=== PATIENT | male | born 2000 | race Two or more races ===

== ENCOUNTER 2025-03-01 17:32 | Inpatient (IN) | payer MEDICAID, SELFPAY ==
[2025-03-01] VITALS (12 sets, daily range): BP systolic 119–149; BP diastolic 70–96; PULSE 114–136; RESP 18–30; TEMP 36.4–36.9; O2SAT 98–100; BMI 28.1
--- NOTE | 2025-03-01 18:53 | PD.EDNV ---
Nausea/Vomit./Diarrhea-RME/HPI General Chief complaint: General Adult/Misc Complain Stated complaint: DEHYDRATED, FEELS SICK, N/V, HEADACHE Time Seen by Provider: 03/01/25 18:40 Arrival date/time: 03/01/25 17:32 24M with history of alcohol/cocaine use (3 weeks ago) presents to [facility] with several days of N/V and feelings of dehydration. Symptoms started after patient ate some seafood. No diarrhea or ab pain. Limitations: no limitations Related Data Previous Rx's ?Medication ?Instructions ?Recorded ketoconazole 2 % shampoo 1 applic topical Q14D #120 mL 04/14/20 loratadine 10 mg tablet (Claritin) 10 mg PO QDAY #30 tabs 04/14/20 triamcinolone acetonide 0.025 % 1 applic topical QDAY #80 grams 04/14/20 topical ointment Allergies Allergy/AdvReac Type Severity Reaction Status Date / Time No Known Allergies Allergy Verified 03/01/25 17:35 Review of Systems Review of Systems Systems Reviewed: All systems reviewed, normal except as documented Gastrointestinal Gastrointestinal: Reports as per HPI, Reports nausea and Reports vomiting Past Medical History Past Medical History CARDIAC: Negative Congestive Heart Failure RESPIRATORY: Negative Chronic Obstructive Pulmonary Disease (COPD) GENITOURINARY: Negative Renal Disease ENDOCRINE: Negative Diabetes Mellitus Type 1 or Diabetes Mellitus Type 2 Social History SMOKING STATUS: Never smoker ED Exam General Limitations: Present no limitations General appearance: Present alert, in no apparent distress and anxious (mild) Head Head exam: Present atraumatic Neck Neck exam: Present normal inspection, full ROM and trachea midline Chest Chest inspection: Present normal inspection and symmetric chest wall rise Abdominal Exam Abdominal exam: Present soft; Absent tenderness Neurological Exam Neurological exam: Present alert and oriented X3 Psychiatric Psychiatric exam: Present normal affect and normal mood Skin Skin exam: Present warm, dry, intact and normal color Course Quality Measures none Orders Category Date Time Status Admit to Inpatient Status Routine Admission 03/01/25 21:05 Active Patient Condition Routine Admission 03/01/25 21:05 Ordered Blood glucose [Bedside Blood Glucose] NOW Care 03/01/25 19:49 Active COVID-19 Screening Questionnaire NOW Care 03/01/25 20:58 Active Fire Manager STAT Care 03/01/25 20:35 Active DKA Protocol QSHIFT Care 03/01/25 20:35 Active Decision to Admit X1 Care 03/01/25 20:58 Active Flu & Pneumonia Vaccine Screen ONCE Care 03/01/25 21:05 Active Insert IV NOW Care 03/01/25 19:51 Active Intake and Output Routine Care 03/01/25 20:35 Ordered May take PO meds w/sips of H2O NEEDED Care 03/01/25 21:05 Active NPO NOW Care 03/01/25 21:02 Active Notify provider NEEDED Care 03/01/25 21:02 Active Notify provider NEEDED Care 03/01/25 21:05 Active SCD [Sequential Compression Device] QSHIFT Care 03/01/25 21:05 Active Referral Registered Dietitian Routine Cons 03/01/25 20:35 Active Diet NPO (NOW) Diet 03/01/25 21:02 Active CXRP [XR chest 1V portable] Stat Exams 03/01/25 21:11 Ordered A1C [Glycohemoglobin w (eAG)] Stat Lab 03/01/25 19:37 Completed Alcohol, Blood Medical Stat Lab 03/01/25 19:37 Completed Beta Hydroxybutyrate Stat Lab 03/01/25 19:37 Completed Blood Culture (Lab) Routine Lab 03/01/25 21:02 Ordered CBC AM DRAW Lab 03/02/25 05:00 Ordered CBC AM DRAW Lab 03/03/25 05:00 Ordered CBC AM DRAW Lab 03/04/25 05:00 Ordered CBC Stat Lab 03/01/25 19:37 Completed CMP [Comprehensive Metabolic Panel] Stat Lab 03/01/25 19:37 Completed Drug Screen,Urine Stat Lab 03/01/25 19:00 Completed Lactate (Lactic Acid) Q4H Lab 03/02/25 01:15 Ordered Lactate (Lactic Acid) Q4H Lab 03/02/25 05:15 Ordered Lactate (Lactic Acid) Q4H Lab 03/02/25 09:15 Ordered Lactate (Lactic Acid) Q4H Lab 03/02/25 13:15 Ordered Lactate (Lactic Acid) Q4H Lab 03/02/25 17:15 Ordered Lactate (Lactic Acid) Q4H Lab 03/02/25 21:15 Ordered Lactate (Lactic Acid) Q4H Lab 03/03/25 01:15 Ordered Lactate (Lactic Acid) Q4H Lab 03/03/25 05:15 Ordered Lactate (Lactic Acid) Q4H Lab 03/03/25 09:15 Ordered Lactate (Lactic Acid) Q4H Lab 03/03/25 13:15 Ordered Lactate (Lactic Acid) Q4H Lab 03/03/25 17:15 Ordered Lactate (Lactic Acid) Q4H Lab 03/03/25 21:15 Ordered Lactate (Lactic Acid) Stat Lab 03/01/25 19:37 Results Lipase Stat Lab 03/01/25 19:37 Completed Magnesium Q4H Lab 03/02/25 01:15 Ordered Magnesium Q4H Lab 03/02/25 05:15 Ordered Magnesium Q4H Lab 03/02/25 09:15 Ordered Magnesium Q4H Lab 03/02/25 13:15 Ordered Magnesium Q4H Lab 03/02/25 17:15 Ordered Magnesium Q4H Lab 03/02/25 21:15 Ordered Magnesium Q4H Lab 03/03/25 01:15 Ordered Magnesium Q4H Lab 03/03/25 05:15 Ordered Magnesium Q4H Lab 03/03/25 09:15 Ordered Magnesium Q4H Lab 03/03/25 13:15 Ordered Magnesium Q4H Lab 03/03/25 17:15 Ordered Magnesium Q4H Lab 03/03/25 21:15 Ordered Magnesium Stat Lab 03/01/25 19:37 Completed Phosphorous Stat Lab 03/01/25 19:37 Completed Procalcitonin Stat Lab 03/01/25 19:37 Completed Renal Function Panel Q4 Lab 03/02/25 01:15 Ordered Renal Function Panel Q4 Lab 03/02/25 05:15 Ordered Renal Function Panel Q4 Lab 03/02/25 09:15 Ordered Renal Function Panel Q4 Lab 03/02/25 13:15 Ordered Renal Function Panel Q4 Lab 03/02/25 17:15 Ordered Renal Function Panel Q4 Lab 03/02/25 21:15 Ordered Renal Function Panel Q4 Lab 03/03/25 01:15 Ordered Renal Function Panel Q4 Lab 03/03/25 05:15 Ordered Renal Function Panel Q4 Lab 03/03/25 09:15 Ordered Thyroid Stimulating Hormone AM DRAW Lab 03/02/25 05:00 Ordered Urinalysis, C/S if Indicated Stat Lab 03/01/25 19:00 Completed VBG [Venous Blood Gas] Stat Lab 03/01/25 19:37 Completed Dextrose 5%-Lactated Ringers [D5-Lr] 1,000 ml Med 03/01/25 20:34 Active Pot Chl Additive [KCl Additive] 40 meq IV 250 mls/hr Dextrose 5%-Lactated Ringers [D5-Lr] 1,000 ml Med 03/01/25 20:34 Active IV 250 mls/hr Dextrose 5%-Lactated Ringers [D5-Lr] 1,000 ml Med 03/01/25 21:02 Ordered IV 250 mls/hr Dextrose 50% Syr [D50w Syringe Abboject] Med 03/01/25 20:34 Discontinued 25 ml IV PRNMRX1 PRN Dextrose 50% Syr [D50w Syringe Abboject] Med 03/01/25 21:02 Ordered 25 ml IV PRNMRX1 PRN KCL 20 mEq/L in D5-LR Med 03/01/25 20:34 Active 20 meq in 1,000 ml IV 250 mls/hr Magnesium Sulfate 2 GM Ivpb [Magnesium Sulfate Ivpb] Med 03/01/25 20:34 Discontinued 2 gm in 50 ml IV 25 mls/hr Magnesium Sulfate 2 GM Ivpb [Magnesium Sulfate Ivpb] Med 03/01/25 21:10 Ordered 2 gm in 50 ml IV 25 mls/hr Ondansetron Odt [Zofran Odt] Med 03/01/25 18:43 Discontinued 4 mg PO X1 ONE POT PHOS 15 mMol in NS 250 ML [Pot Phos 15 mMol in NS Med 03/01/25 20:34 Active 250 ml] 15 mmol in 250 ml IV PRN POTASSIUM CHL 10 mEq IVPB [Kcl Ivpb] Med 03/01/25 20:34 Active 10 meq in 100 ml IV 100 mls/hr POTASSIUM CHL 10 mEq IVPB [Kcl Ivpb] Med 03/01/25 20:34 Active 10 meq in 100 ml IV PRN Pre-Mixed [Pre-mixed Bag] 1 bag Med 03/01/25 20:34 Active Insulin Reg 100 Units/100 ml [Myxredlin] 100 unit IV 0.1 unit/kg/hr Ringers Lactated 1000 ml [Lactated Ringers] 1,000 ml Med 03/01/25 20:34 Active Pot Chl Additive [KCl Additive] 20 meq IV 250 mls/hr Ringers Lactated 1000 ml [Lactated Ringers] 1,000 ml Med 03/01/25 20:34 Active Pot Chl Additive [KCl Additive] 40 meq IV 250 mls/hr Ringers Lactated 1000 ml [Lactated Ringers] 1,000 ml Med 03/01/25 20:34 Active IV 250 mls/hr Ringers Lactated 1000 ml [Lactated Ringers] 1,000 ml Med 03/01/25 21:02 Ordered IV 250 mls/hr Ringers Lactated 1000 ml [Lactated Ringers] 1,000 ml Med 03/01/25 19:51 Discontinued IV 999 mls/hr Ringers Lactated 1000 ml [Lactated Ringers] 1,000 ml Med 03/01/25 20:14 Active IV 999 mls/hr Sevelamer Carbonate [Renvela] Med 03/01/25 21:09 Once 800 mg PO X1 ONE Sodium Bicarb 8.4% SYR Med 03/01/25 20:34 Active 50 ml IV Q4HR PRN Sodium Chloride 0.9% 250 ml [Ns] 250 ml Med 03/01/25 20:34 Active Sod Phos Additive [NaPhos Additive] 15 mmol IV 62.5 mls/hr Code Status Routine Oth 03/01/25 21:05 Ordered EKG (RT) Stat RT 03/01/25 21:02 Ordered Vital Signs Vital signs: Vital Signs Temperature 97.5 F 03/01/25 18:36 Pulse Rate 114 H 03/01/25 18:36 Respiratory Rate 18 03/01/25 18:36 Blood Pressure 136/91 H 03/01/25 18:36 Pulse Oximetry (%) 98 03/01/25 18:36 Oxygen Delivery Method Room Air 03/01/25 18:36 O2 at 98% on RA and WNLs Nausea/Vomiting/Diarrhea MDM Narrative MDM Narrative:: 24M with history of alcohol/cocaine use (3 weeks ago) presents to [facility] with several days of N/V and feelings of dehydration. Symptoms started after patient ate some seafood. No diarrhea or ab pain. Physical exam reveals no ab tenderness. Gait normal. Speech normal. Patient is afebrile, alert, but mildly anxious. Moderate leukocytosis. CMP remarkable for mildly elevated K, low bicarb, elevated Cr and anion-gap. Beta >6.4. Blood pH 7.09. Drug/alcohol screen neg. UA high glucose and ketones. Spoke to Dr. Elliott, ICU resident, who will admit patient. Patient data External records reviewed:: [facility] previous records Clinical information provided by:: patient Social determinants that could affect healthcare access:: substance use Patient has the following chronic illnesses:: alcohol/drug How is presenting disease/condition affected by chronic disease/condition?: exacerbated by Evaluation data The following diagnostics were reviewed and interpreted by me:: lab results Lab and/or radiology exams considered but not ordered:: ordered Interpretation Summary: above Medications / Prescriptions Medications / Prescriptions considered but not ordered:: ordered Medication administrations:: Medication Administration History Dextrose (Dextrose 50%-Water Inj 50 Ml Syringe) 25 ml IV PRNMRX1 PRN PRN Reason: Blood Sugar - Low Lactated Ringer's (Lactated Ringers) 1,000 mls @ 999 mls/hr IV .Q1H1M ONE Stop: 03/01/25 21:14 Potassium Chloride (Kcl Ivpb) 10 meq in 100 mls @ 100 mls/hr IV .Q1H PRN PRN Reason: IF POTASSIUM LESS THAN 3.3 Stop: 03/31/25 20:33 Insulin Human Regular 100 unit (/ IV Miscellaneous Supplies) 100 mls @ 7.439 mls/hr IV .[id number] PRN; Protocol PRN Reason: PER PROTOCOL Stop: 03/31/25 20:33 Dextrose/Lactated Ringer's (D5-Lr) 1,000 mls @ 250 mls/hr IV .Q4H PRN PRN Reason: PER PROTOCOL Stop: 03/31/25 20:33 Lactated Ringer's (Lactated Ringers) 1,000 mls @ 250 mls/hr IV .Q4H PRN PRN Reason: PER PROTOCOL Stop: 03/02/25 20:33 Potassium Chloride 20 meq/ (Lactated Ringer's) 1,010 mls @ 250 mls/hr IV .Q4H3M PRN PRN Reason: K LEVEL 3.3 TO 5.3mM/L Stop: 03/31/25 20:33 Potassium Chloride 40 meq/ (Lactated Ringer's) 1,020 mls @ 250 mls/hr IV .Q4H5M PRN PRN Reason: K LEVEL < 3.3 mM/L Stop: 03/31/25 20:33 Potassium Chloride 40 meq/ (Dextrose/Lactated Ringer's) 1,020 mls @ 250 mls/hr IV .Q4H5M PRN PRN Reason: K LEVEL < 3.3mM/L Stop: 03/31/25 20:33 Potassium Cl/Dextrose/Lact Ringer's (Kcl 20 Meq/L In D5-Lr) 20 meq in 1,000 mls @ 250 mls/hr IV .Q4H PRN PRN Reason: K LEVEL 3.3 TO 5.3 mM/L Potassium Chloride (Kcl Ivpb) 10 meq in 100 mls @ 50 mls/hr IV PRN PRN PRN Reason: K LEVEL 3.3 to 5.3 & BG > 200 Stop: 03/31/25 20:33 Potassium Phosphate (Pot Phos 15 Mmol In Ns 250 Ml) 15 mmol in 250 mls @ 62.5 mls/hr IV PRN PRN PRN Reason: Phosphate <= 1mg/dL Stop: 03/31/25 20:33 Sodium Phosphate 15 mmol/ (Sodium Chloride) 255 mls @ 62.5 mls/hr IV .Q4H5M PRN PRN Reason: Phosphate <= 1mg/dL and K> than 5.3 Stop: 03/31/25 20:33 Dextrose/Lactated Ringer's (D5-Lr) 1,000 mls @ 250 mls/hr IV .Q4H PRN PRN Reason: PER PROTOCOL Stop: 03/31/25 21:01 Lactated Ringer's (Lactated Ringers) 1,000 mls @ 250 mls/hr IV .Q4H PRN PRN Reason: PER PROTOCOL Stop: 03/02/25 21:01 Magnesium Sulfate (Magnesium Sulfate Ivpb) 2 gm in 50 mls @ 25 mls/hr IV .Q2H PRN PRN Reason: PER DKA PROTOCOL Stop: 03/31/25 20:33 Sevelamer Carbonate (Sevelamer Carbonate 800 Mg Tablet) 800 mg PO X1 ONE Stop: 03/01/25 21:10 Sodium Bicarbonate (Sodium Bicarb Inj 8.4% Syr 50 Ml Syringe) 50 ml IV Q4HR PRN PRN Reason: For ph <= to 7.0 Stop: 03/31/25 20:33 Discontinued Medications Dextrose (Dextrose 50%-Water Inj 50 Ml Syringe) 25 ml IV PRNMRX1 PRN PRN Reason: Blood Sugar - Low Lactated Ringer's (Lactated Ringers) 1,000 mls @ 999 mls/hr IV .Q1H1M ONE Stop: 03/01/25 20:51 Magnesium Sulfate (Magnesium Sulfate Ivpb) 2 gm in 50 mls @ 25 mls/hr IV .Q2H PRN PRN Reason: PER DKA PROTOCOL Stop: 03/31/25 20:33 Ondansetron HCl (Ondansetron Odt 4 Mg Tabrap) 4 mg PO X1 ONE; Protocol Stop: 03/01/25 18:44 Last Admin: 03/01/25 19:43 Dose: 4 mg Documented By: CASSIUS above Consultations Consultation(s) initiated? (list below): Yes Diagnosis Nausea Differential Diagnosis: traveler's diarrhea, food poisoning, gastroenteritis, clostridium difficile infection, drug-induced nausea and vomiting, dehydration and other (DKA) Most likely diagnosis given after review of the tests above:: DKA Admission Indicated Admission indicated?: indicated Admission Request Was there a request for admission?: Yes Admission Attestation Admission request attestation: Discussed case with [] from Hospitalist service regarding admission. Discussed patients ED course, exam findings, labs, and radiology results. The Hospitalist [agrees,declines] to accept the patient for admission. Disposition Plan Disposition Plan: Admit Discharge Plan Plan Patient Disposition: Admit Acute Care w/in Hospital Prescriptions/Referrals Prescriptions/Med Rec: No Action loratadine [Claritin] 10 mg tablet 10 mg PO QDAY Qty: 30 0RF triamcinolone acetonide 0.025 % ointment 1 applic topical QDAY Qty: 80 0RF ketoconazole 2 % shampoo 1 applic topical Q14D Qty: 120 0RF Referrals: No Primary/Family,Physician [Primary Care Provider] - In 1 week Problem List Clinical Impression: DKA (diabetic ketoacidosis) Patient/Caregiver Discharge Instructions Print Language: Greek Stand Alone Forms: [employer] Award Info., Patient Portal Info Letter
[2025-03-01 19:18] LABS: Collection Type, Urine Clean Catch; Squamous Epithelial Cell,Urine 0 /hpf (0-5)
[2025-03-01 19:33] LABS: Bilirubin,Urine Negative (Negative); Blood,Urine 1+ (Negative); Clarity,Urine Clear (Clear/Hazy); Color,Urine Lt-Yellow (Lt Yel-Yel); Culture Indicated,Urine Not Indicated; Glucose, Urine 4+ (Negative); Ketones,Urine 4+ (Negative); Leukocyte Esterase,Urine Negative (Negative); Nitrite,Urine Negative (Negative); PH,Urine 6.0 (5.0-7.0); Protein,Urine 1+ (Neg - Trace); RBC,Urine 3 /hpf (0-3); Specific Gravity,Urine 1.033 (1.001-1.035); Urobilinogen,Urine Negative mg/dL (0.0-1.0); WBC,Urine < 1 /hpf (0-5)
[2025-03-01] MEDS: ONDANSETRON ODT 4 MG TABRAP PO (19:43)
[2025-03-01 19:50] LABS: Lactate (Lactic Acid) 3.3 mMol/L (0.4-2.0)
[2025-03-01 19:56] LABS: Basophils # (Auto) 0.1 Thou/mm3 (0.0-0.2); Basophils % (Auto) 1 % (0-2.5); Eosinophils # (Auto) 0.0 Thou/mm3 (0.0-0.5); Eosinophils % (Auto) 0 % (0-10); Hematocrit 49.2 % (41.0-53.0); Hemoglobin 17.0 g/dL (13.5-16.0); Immature Granulocytes Auto 0.18 Thou/mm3 (0.00-0.00); Lymphocytes # (Auto) 1.5 Thou/mm3 (1.0-4.8); Lymphocytes % (Auto) 10 % (10-50); Mean Corpuscular HGB Conc 34.6 g/dl (31.0-37.0); Mean Corpuscular Hemoglobin 29.8 pg (25.0-35.0); Mean Corpuscular Volume 86 fL (80-100); Monocytes # (Auto) 0.8 Thou/mm3 (0.0-0.8); Monocytes % (Auto) 5 % (0-12); Neutrophils # (Auto) 12.2 Thou/mm3 (1.8-7.7); Neutrophils % (Auto) 83 % (37-80); Nucleated Red Blood Cell # 0.00 Thou/mm3 (0.00-0.00); Nucleated Red Blood Cell % 0 /100 WBC (0); Platelet Count 448 Thou/mm3 (140-440); RDW Standard Deviation 37.6 fL (35.1-43.9); Red Blood Count 5.70 Miln/mm3 (4.50-5.90); White Blood Count 14.7 Thou/mm3 (3.8-10.6)
[2025-03-01 19:58] LABS: Amphetamine/Methamp Scrn,U Negative (Negative); Barbiturate Screen,Urine Negative (Negative); Benzodiazepines Screen,Urine Negative (Negative); Benzoylecgonine Screen, Ur Negative (Negative); Fentanyl Screen,Urine Negative (Negative); Opiate Screen,Urine Negative (Negative); THC Screen,Urine Negative (Negative)
[2025-03-01 20:04] LABS: Base Excess, Venous -20 (-3-3); O2 Saturation, Venous 68 % (96-97); PCO2, Venous 30 mmHg (36-56); PO2, Venous 39 mmHg (15-58); pH, Venous 7.09 (7.33-7.66)
[2025-03-01 20:17] LABS: Beta Hydroxybutyrate > 6.4 mmol/L (<0.6)
[2025-03-01 20:22] LABS: Glucose Estimated Average 306 mg/dL (80-131); Hemoglobin A1C 12.3 % Hgb (4.8-6.0)
[2025-03-01 20:27] LABS: Alanine Aminotransferase 157 U/L (10-49); Albumin, Serum > 6.0 gm/dL (3.5-5.0); Albumin/Globulin Ratio 1.9 (1.2-2.2); Alcohol, Blood Medical < 3.0 mg/dL (0-10.0); Alkaline Phosphatase 185 U/L (46-116); Anion Gap 30 (7-16); Aspartate Amino Transferase 66 U/L (0-34); BUN/Creatinine Ratio 7 Ratio (12-20); Bilirubin,Total 0.8 mg/dL (0.3-1.2); Blood Urea Nitrogen 15 mg/dL (9-23); Calcium 10.5 mg/dL (8.3-10.6); Calcium (Corrected) 10.5 mg/dL (8.5-10.1); Chloride 99 mMol/L (98-107); Creatinine (Component) 2.3 mg/dL (0.6-1.3); Estimated Creatinine Clearance 45.7 mL/min (>60); Globulin 3.2 gm/dL (2.3-3.5); Lipase 38 U/L (12-53); Magnesium 2.7 mg/dL (1.6-2.6); Osmolality,Calculated 310 (275-295); Phosphorous 8.0 mg/dL (2.4-5.1); Potassium 5.4 mMol/L (3.4-5.1); Procalcitonin 0.13 ng/ml (0.0-0.49); Sodium 139 mMol/L (136-145); Total Protein 9.2 gm/dL (5.7-8.2); eGFR 40 See Note
[2025-03-01 20:28] LABS: Carbon Dioxide < 10.0 mMol/L (20.0-31.0)
[2025-03-01 20:29] LABS: Glucose 683 mg/dL (74-106)
--- NOTE | 2025-03-01 21:02 | EKG_ITS ---
[facility] Test Date: 2025-03-01 Pat Name: EDWINA HUI Department: Room: - Gender: Male Correctional Case Manager: : [id number] Requested By: Nash Elliott Order Number: [id number] Reading MD: Nash Elliott Measurements Intervals [place] Rate: 123 P: 51 ND: 125 QRS: 16 QRSD: 89 T: 51 QT: 307 QTc: 440 Interpretive Statements SINUS TACHYCARDIA ABNORMAL RHYTHM ECG No previous ECG available for comparison /[email or web address]/[email or web address]/[id number]/[id number].pdf
--- NOTE | 2025-03-01 21:11 | XR_ITS ---
EXAMINATION: AP chest single view TECHNIQUE: AP portable upright chest single view Date and time: March 01, 2025, 2138 hours INDICATIONS: Difficulty breathing this week FINDINGS: Normal heart size No pneumonia or pulmonary edema. The osseous structures are intact IMPRESSION: No active disease
--- NOTE | 2025-03-01 21:53 | PD.RESHP ---
Documentation for date of: 03/01/25 HPI History of Present Illness History of present illness: Chief complaint: Intractable nausea vomiting x 3 days HPI: Mr. Oates Is a pleasant 24-year-old male with no significant past medical history who was brought to the ED by his mother for persistent nausea vomiting over the last 3 days. Patient started experiencing severe nausea 72 hours ago, with intermittent episodes of nonbilious nonbloody vomitus x 10+ episodes over the last 3 days. His last meal was 72 hours ago and last bowel movement was yesterday. He has never experienced the symptoms in the past. He denies any fevers, systemic symptoms or any signs of infection. He denies any sick contacts or recent travel as well. He does complain of bodyaches, which have worsened over the last 24 hours. There is also some associated dizziness, however denies any episodes of syncope. In the ED, vitals showed elevated blood pressure 149/96, tachypnea RR 24?26 and tachycardia HR 133-138 bpm. Temperature within normal limits. Initial laboratory workup remarkable for leukocytosis WBC 14.7 with neutrophil predominance, hemoconcentration Hb 17, platelet 448, albumin > 6 and protein 9.2. CHEM panel showed hyperkalemia 5.4, hypermagnesemia 2.7, hyperphosphatemia 8 and hypercalcemia 10.5. Blood glucose level 683, BHB > 6.4, VBG pH 7.09 and CO2 30. AG 30 and Lactic acid noted to be 3.3 and A1c 12.3%. Patient also had mild transaminitis AST 66 ALT 157 and ALP 185. Patient admitted to ICU for management of acute diabetic ketoacidosis, in the setting of new onset type 2 diabetes mellitus. Allergies: NKFDA Social history: Occupational?History: Marital?Status:?Single Tobacco?Use:?Denies ETOH?Use:?History of alcohol use disorder, quit 1 month ago. Previously consumed 4?5 beers daily x 5 years Drug?Note:?History of cocaine use, last use 1 month ago with alcohol. Says he has quit Social?History?Note:?Lives?at home with family Family history: Patient is not in touch with his father or paternal side of the family. Mother? type 2 diabetes mellitus x 22 years, was diagnosed in her mid 20s Review of Systems Review of Systems Narrative Review of Systems: GENERAL: Denies fevers/chills, diaphoresis. Generalized body aches HEENT: Denies headache or visual/hearing changes. Denies nasal discharge. NEURO: Denies unusual weakness or difficulty speaking. CARDIO: Denies chest pain, palpitations. PULM: Denies SOB, cough, wheezing. GI: Mild right sided abdominal pain, N/V, no C/D. Reports having BMs URO: Denies burning/itching/pain/urinary changes. MSK/EXT/SKIN: Denies skeletal/muscle pain, changes in upper or lower extremities, itchiness, superficial skin changes. PSYCH: Cooperative, pleasant mood & affect. Anxious The rest of the review of systems is otherwise negative. Exam Vital Signs Temp Pulse Resp BP Pulse Ox O2 Del Method 98.4 F 133 H 24 H 149/96 H 98 Room Air 03/01/25 21:46 03/01/25 21:46 03/01/25 21:46 03/01/25 21:46 03/01/25 21:46 03/01/25 21:46 Narrative Exam Constitutional Alert, oriented x3, overweight BMI 28, visibly anxious HEENT Vision grossly intact, PERRL. Patent nares. Trachea midline. Respiratory Chest normal on inspection and clear to auscultation bilaterally. Cardiovascular S1 and S2 audible, RRR, tachycardia HR 130s bpm. No murmurs or carotid bruit. No gross JVD. Abdominal Soft and BS + ; non tender to palpation in all quadrants. Genitourinary No bladder tenderness, no flank pain. Normal to palpation. Musculoskeletal Extremities tone within normal limits. No LE edema. Neurological CN II - XII grossly intact. Extremity motor and sensation grossly intact. Skin Warm, dry and intact. No apparent lesions. Results: Labs 03/01/25 19:37 03/01/25 19:37 Labs: Short CBC 03/01/25 Range/Units 19:37 WBC 14.7 H (3.8-10.6) Thou/mm3 Hgb 17.0 H (13.5-16.0) g/dL Hct 49.2 (41.0-53.0) % Plt Count 448 H (140-440) Thou/mm3 BMP 03/01/25 19:37 Sodium 139 Potassium 5.4 H Chloride 99 Carbon Dioxide < 10.0 L* BUN 15 Creatinine 2.3 H Glucose 683 H* Calcium 10.5 Liver Function 03/01/25 Range/Units 19:37 Total Bilirubin 0.8 (0.3-1.2) mg/dL AST 66 H (0-34) U/L ALT 157 H (10-49) U/L Alkaline Phosphatase 185 H (46-116) U/L Albumin > 6.0 H (3.5-5.0) gm/dL Urine 03/01/25 Range/Units 19:00 Urine Color Lt-Yellow (Lt Yel-Yel) Urine Clarity Clear (Clear/Hazy) Urine pH 6.0 (5.0-7.0) Ur Specific [place] 1.033 (1.001-1.035) Urine Protein 1+ A (Neg - Trace) Urine Glucose (UA) 4+ A (Negative) ABG Interpretation ABG results: 03/01/25 19:37 VBG pH 7.09 L VBG pCO2 30 L VBG pO2 39 VBG Base Excess -20 L Quality Measures Quality Measures none Medications Home Medications and Allergies Allergies Allergy/AdvReac Type Severity Reaction Status Date / Time No Known Allergies Allergy Verified 03/01/25 17:35 Visit Medications Dextrose (Dextrose 50%-Water Inj 50 Ml Syringe) 25 ml IV PRNMRX1 PRN PRN Reason: Blood Sugar - Low Potassium Chloride (Kcl Ivpb) 10 meq in 100 mls @ 100 mls/hr IV .Q1H PRN PRN Reason: IF POTASSIUM LESS THAN 3.3 Stop: 03/31/25 20:33 Insulin Human Regular 100 unit (/ IV Miscellaneous Supplies) 100 mls @ 7.439 mls/hr IV .[id number] PRN; Protocol PRN Reason: PER PROTOCOL Stop: 03/31/25 20:33 Dextrose/Lactated Ringer's (D5-Lr) 1,000 mls @ 250 mls/hr IV .Q4H PRN PRN Reason: PER PROTOCOL Stop: 03/31/25 20:33 Lactated Ringer's (Lactated Ringers) 1,000 mls @ 250 mls/hr IV .Q4H PRN PRN Reason: PER PROTOCOL Stop: 03/02/25 20:33 Potassium Chloride 20 meq/ (Lactated Ringer's) 1,010 mls @ 250 mls/hr IV .Q4H3M PRN PRN Reason: K LEVEL 3.3 TO 5.3mM/L Stop: 03/31/25 20:33 Potassium Chloride 40 meq/ (Lactated Ringer's) 1,020 mls @ 250 mls/hr IV .Q4H5M PRN PRN Reason: K LEVEL < 3.3 mM/L Stop: 03/31/25 20:33 Potassium Chloride 40 meq/ (Dextrose/Lactated Ringer's) 1,020 mls @ 250 mls/hr IV .Q4H5M PRN PRN Reason: K LEVEL < 3.3mM/L Stop: 03/31/25 20:33 Potassium Cl/Dextrose/Lact Ringer's (Kcl 20 Meq/L In D5-Lr) 20 meq in 1,000 mls @ 250 mls/hr IV .Q4H PRN PRN Reason: K LEVEL 3.3 TO 5.3 mM/L Potassium Chloride (Kcl Ivpb) 10 meq in 100 mls @ 50 mls/hr IV PRN PRN PRN Reason: K LEVEL 3.3 to 5.3 & BG > 200 Stop: 03/31/25 20:33 Potassium Phosphate (Pot Phos 15 Mmol In Ns 250 Ml) 15 mmol in 250 mls @ 62.5 mls/hr IV PRN PRN PRN Reason: Phosphate <= 1mg/dL Stop: 03/31/25 20:33 Sodium Phosphate 15 mmol/ (Sodium Chloride) 255 mls @ 62.5 mls/hr IV .Q4H5M PRN PRN Reason: Phosphate <= 1mg/dL and K> than 5.3 Stop: 03/31/25 20:33 Dextrose/Lactated Ringer's (D5-Lr) 1,000 mls @ 250 mls/hr IV .Q4H PRN PRN Reason: PER PROTOCOL Stop: 03/31/25 21:01 Magnesium Sulfate (Magnesium Sulfate Ivpb) 2 gm in 50 mls @ 25 mls/hr IV .Q2H PRN PRN Reason: PER DKA PROTOCOL Stop: 03/31/25 20:33 Sodium Bicarbonate (Sodium Bicarb Inj 8.4% Syr 50 Ml Syringe) 50 ml IV Q4HR PRN PRN Reason: For ph <= to 7.0 Stop: 03/31/25 20:33 Discontinued Medications Dextrose (Dextrose 50%-Water Inj 50 Ml Syringe) 25 ml IV PRNMRX1 PRN PRN Reason: Blood Sugar - Low Lactated Ringer's (Lactated Ringers) 1,000 mls @ 999 mls/hr IV .Q1H1M ONE Stop: 03/01/25 20:51 Lactated Ringer's (Lactated Ringers) 1,000 mls @ 999 mls/hr IV .Q1H1M ONE Stop: 03/01/25 21:14 Magnesium Sulfate (Magnesium Sulfate Ivpb) 2 gm in 50 mls @ 25 mls/hr IV .Q2H PRN PRN Reason: PER DKA PROTOCOL Stop: 03/31/25 20:33 Lactated Ringer's (Lactated Ringers) 1,000 mls @ 250 mls/hr IV .Q4H PRN PRN Reason: PER PROTOCOL Stop: 03/02/25 21:01 Ondansetron HCl (Ondansetron Odt 4 Mg Tabrap) 4 mg PO X1 ONE; Protocol Stop: 03/01/25 18:44 Last Admin: 03/01/25 19:43 Dose: 4 mg Sevelamer Carbonate (Sevelamer Carbonate 800 Mg Tablet) 800 mg PO X1 ONE Stop: 03/01/25 21:10 Assessment & Plan Plan Patient is a 24-year-old male admitted for acute DKA in the setting of new onset type 2 diabetes mellitus NEURO No active problems ENDO Acute DKA New onset T2 DM Dx: - Blood glucose level 683 - BHB > 6.4 - VBG pH 7.09 and CO2 30. - AG 30 - Hb A1c 12.3% Rx: - Started on insulin drip per DKA protocol - On maintenance IVF LR/D5 LR per protocol - Q4 hour renal panel and lactic acid checks - Will replete electrolytes as needed - Hypoglycemia protocol in place - Day team to transition to subcutaneous insulin and diet when tolerated - Referral to dietitian for diabetic counseling - Advisable to prescribe continuous glucose monitor on discharge CVS Sinus tachycardia History of substance use- cocaine Dx: - HR trending 130-135 bpm - K 6.7 at the time of admission - Per patient, last use of cocaine 1 month ago. Endorses he has quit completely. Rx: - Likely in the setting of DKA, anticipate improvement with fluids and insulin drip - Will give melatonin x 1 for sleep as requested. Patient complains of anxiety in the hospital - EKG ordered, will monitor closely in the setting of hyperkalemia - Follow-up TSH and lipid panel on AM draw PULM No active problems GI/Hep Intractable nausea/vomiting?resolved Dx: - severe nausea 72 hours ago, with intermittent episodes of nonbilious nonbloody vomitus x 10+ episodes over the last 3 days. - last meal was 72 hours ago and last bowel movement was yesterday. - He has never experienced the symptoms in the past. He denies any fevers, systemic symptoms or any signs of infection Rx: - Will keep patient n.p.o. while on DKA treatment. Unable to tolerate oral intake at this time - Continue IV fluids for hydration - As needed Zofran 4 mg every 6 hours for N/V - Day team to start diet once glucose levels <250, and transition to SC insulin - May take sips of water and ice chips if needed RENAL LIAM AGMA 2/2 DKA versus LA Hyperkalemia Hypomagnesemia Hypercalcemia Hyperphosphatemia Dx: - RFT: Creatinine 2.3, BUN 15 and GFR 40 (unknown baseline) - hyperkalemia 5.4 - hypermagnesemia 2.7 - hyperphosphatemia 8 - hypercalcemia 10.5. - AG 30 at the time of admission - BHB >6 and Bicarb <10, glucose 683 - Lactic acid 3.3 Rx: - Continue IV fluids as per DKA protocol, anticipate improvement in LIAM and electrolytes - Anticipate potassium correction with insulin drip - Q4 hours renal panel checks - Ordered sevelamer 800 mg x 1 ID No active problems HEME/ONC Hemoconcentration Dx: - Hb 17, platelet 448 - Albumin > 6 and Protein 9.2 Rx: - Likely in the setting of DKA, and undiagnosed type 2 diabetes mellitus - Anticipate improvement with IV hydration on DKA protocol - Daily CBC and CHEM panel ordered, follow closely ICU Health maintenance: Dispo: Admit to ICU for DKA Diet: N.p.o. with meds allowed DVT ppx: SCDs only. Ambulate patient by day 3 GI ppx: Not indicated Code status: FULL CODE Plan of care discussed with wind turbine electrical engineer Dr Baugh, Nash Elliott MD PGY 2 This document was compiled using speech recognition software. Grammatical errors can be an occasional consequence of this system due to software limitations. Attending Provider Attestation/Addendum 24-year-old male patient was admitted for DKA. He has history of alcohol and cocaine use. The patient does not know that he has diabetes. His mother has diabetes. Earlier he had several episodes of nausea and vomiting. He started feeling very weak today. In the emergency room, his blood pH is 7.02. BHB is greater than 4. He has high anion gap. CO2 is less than 10. Creatinine 2.5. He has abnormal LFTs. He is awake and alert alert. Patient will be on insulin drip. He will be admitted to the ICU.I discussed with and supervised the resident physician who took care of this patient. I agree with the assessment and plan as above.
--- NOTE | 2025-03-01 22:30 | PC.NURSE ---
2230 CALLED [facility] FOR MED.
[2025-03-01] MEDS: SEVELAMER CARBONATE 800 MG TABLET PO (22:38)
[2025-03-01] MEDS: RINGERS LACTATED 1000 ML 1,000 ML 999 ML IV (22:39)
[2025-03-01] MEDS: Magnesium Sulfate 2 GM Ivpb 2 GM/50 ML BAG IV (22:45)
[2025-03-01 22:46] LABS: Reflex Lactate? Y
[2025-03-01] MEDS: INSULIN REG 100 UNITS/100 ML 100 UNIT in PRE-MIXED 1 BAG 7.439 UNIT IV ×2 (22:57→23:17)
[2025-03-01 23:16] LABS: Lactic Acid, 3 HR 4.1 mMol/L (0.4-2.0)
--- NOTE | 2025-03-01 23:41 | PC.NURSE ---
Dr. Elliott aware that Pt Mag is 2.7, still give 2G Mag per protocol, per . aware of updated blood glucose of 594mg/dl
[2025-03-01] MEDS: SODIUM CHLORIDE 0.9% 1000 ML IV (23:46)
[2025-03-02] VITALS (23 sets, daily range): BP systolic 116–157; BP diastolic 72–99; PULSE 75–132; RESP 14–32; TEMP 36.6–37.1; O2SAT 98–100; BMI 28.3
[2025-03-02 01:45] LABS: Lactate (Lactic Acid) 2.5 mMol/L (0.4-2.0)
[2025-03-02 03:08] LABS: Albumin, Serum 5.0 gm/dL (3.5-5.0); Anion Gap 25 (7-16); BUN/Creatinine Ratio 7 Ratio (12-20); Blood Urea Nitrogen 12 mg/dL (9-23); Calcium 9.1 mg/dL (8.3-10.6); Calcium (Corrected) 9.1 mg/dL (8.5-10.1); Chloride 111 mMol/L (98-107); Creatinine (Component) 1.7 mg/dL (0.6-1.3); Estimated Creatinine Clearance 61.9 mL/min (>60); Magnesium 3.0 mg/dL (1.6-2.6); Osmolality,Calculated 311 (275-295); Phosphorous 3.7 mg/dL (2.4-5.1); Potassium 5.0 mMol/L (3.4-5.1); Sodium 146 mMol/L (136-145); eGFR 57 See Note
[2025-03-02 03:11] LABS: Carbon Dioxide < 10.0 mMol/L (20.0-31.0); Glucose 485 mg/dL (74-106)
[2025-03-02] MEDS: POTASSIUM CHL 10 mEq IVPB 10 MEQ/100 ML BAG 50 MEQ IV ×4 (03:20→04:19)
[2025-03-02] MEDS: RINGERS LACTATED 1000 ML 1,000 ML 250 ML IV ×2 (03:22)
[2025-03-02 04:43] LABS: Reflex Lactate? Y
[2025-03-02 05:16] LABS: Lactate (Lactic Acid) 1.4 mMol/L (0.4-2.0)
[2025-03-02 05:19] LABS: Basophils # (Auto) 0.1 Thou/mm3 (0.0-0.2); Basophils % (Auto) 0 % (0-2.5); Eosinophils # (Auto) 0.0 Thou/mm3 (0.0-0.5); Eosinophils % (Auto) 0 % (0-10); Hematocrit 42.6 % (41.0-53.0); Hemoglobin 15.4 g/dL (13.5-16.0); Immature Granulocytes Auto 0.22 Thou/mm3 (0.00-0.00); Lymphocytes # (Auto) 2.2 Thou/mm3 (1.0-4.8); Lymphocytes % (Auto) 12 % (10-50); Mean Corpuscular HGB Conc 36.2 g/dl (31.0-37.0); Mean Corpuscular Hemoglobin 30.6 pg (25.0-35.0); Mean Corpuscular Volume 85 fL (80-100); Monocytes # (Auto) 1.7 Thou/mm3 (0.0-0.8); Monocytes % (Auto) 9 % (0-12); Neutrophils # (Auto) 14.5 Thou/mm3 (1.8-7.7); Neutrophils % (Auto) 78 % (37-80); Nucleated Red Blood Cell # 0.00 Thou/mm3 (0.00-0.00); Nucleated Red Blood Cell % 0 /100 WBC (0); Platelet Count 358 Thou/mm3 (140-440); RDW Standard Deviation 36.9 fL (35.1-43.9); Red Blood Count 5.03 Miln/mm3 (4.50-5.90); White Blood Count 18.7 Thou/mm3 (3.8-10.6)
[2025-03-02 05:40] LABS: Albumin, Serum 4.7 gm/dL (3.5-5.0); Anion Gap 20 (7-16); BUN/Creatinine Ratio 9 Ratio (12-20); Blood Urea Nitrogen 12 mg/dL (9-23); Calcium 9.0 mg/dL (8.3-10.6); Calcium (Corrected) 9.0 mg/dL (8.5-10.1); Cardiac Risk Estimate 6.2 RATIO (4.0-6.7); Chloride 119 mMol/L (98-107); Cholesterol 167 mg/dL (132-200); Creatinine (Component) 1.4 mg/dL (0.6-1.3); Estimated Creatinine Clearance 75.1 mL/min (>60); Glucose 247 mg/dL (74-106); HDL Cholesterol 27 mg/dL (40-60); LDL Cholesterol,Calculated 69 mg/dL (0-130); Magnesium 2.5 mg/dL (1.6-2.6); Osmolality,Calculated 309 (275-295); Phosphorous 1.7 mg/dL (2.4-5.1); Potassium 4.2 mMol/L (3.4-5.1); Sodium 152 mMol/L (136-145); Thyroid Stimulating Hormone 0.64 uIU/mL (0.55-4.78); Triglycerides 354 mg/dL (30-150); eGFR > 60 See Note
[2025-03-02 05:47] LABS: Carbon Dioxide 12.9 mMol/L (20.0-31.0)
[2025-03-02] MEDS: POT CHL ADDITIVE 20 MEQ in RINGERS LACTATED 1000 ML 1,000 ML 250 MEQ IV ×2 (06:52→14:00)
[2025-03-02] MEDS: cefTRIAXone/D5w 1gm IV premix 1 GM/50 ML BAG IV (07:29)
[2025-03-02] MEDS: DOXYCYCLINE INJ 100 MG in SODIUM CHLORIDE 0.9% (POP) 100 ML IV (08:02)
[2025-03-02] MEDS: RINGERS LACTATED 1000 ML 1,000 ML 999 ML IV (08:12)
[2025-03-02] MEDS: POT CHL ADDITIVE 20 MEQ in DEXTROSE 5%-LACTATED RINGERS 1,000 ML 250 MEQ IV (08:20)
[2025-03-02 09:52] LABS: Lactate (Lactic Acid) 1.9 mMol/L (0.4-2.0)
[2025-03-02] MEDS: INSULIN REG 100 UNITS/100 ML 100 UNIT in PRE-MIXED 1 BAG IV (11:00)
[2025-03-02 11:12] LABS: Albumin, Serum 4.0 gm/dL (3.5-5.0); Anion Gap 15 (7-16); BUN/Creatinine Ratio 9 Ratio (12-20); Blood Urea Nitrogen 11 mg/dL (9-23); Calcium 8.4 mg/dL (8.3-10.6); Calcium (Corrected) 8.4 mg/dL (8.5-10.1); Carbon Dioxide 19.7 mMol/L (20.0-31.0); Chloride 117 mMol/L (98-107); Creatinine (Component) 1.2 mg/dL (0.6-1.3); Estimated Creatinine Clearance 88.1 mL/min (>60); Glucose 240 mg/dL (74-106); Magnesium 2.4 mg/dL (1.6-2.6); Osmolality,Calculated 309 (275-295); Phosphorous 1.7 mg/dL (2.4-5.1); Potassium 3.8 mMol/L (3.4-5.1); Sodium 152 mMol/L (136-145); eGFR > 60 See Note
[2025-03-02 13:43] LABS: Albumin, Serum 4.3 gm/dL (3.5-5.0); Anion Gap 13 (7-16); BUN/Creatinine Ratio 9 Ratio (12-20); Blood Urea Nitrogen 11 mg/dL (9-23); Calcium 8.8 mg/dL (8.3-10.6); Calcium (Corrected) 8.8 mg/dL (8.5-10.1); Carbon Dioxide 22.7 mMol/L (20.0-31.0); Chloride 117 mMol/L (98-107); Creatinine (Component) 1.2 mg/dL (0.6-1.3); Estimated Creatinine Clearance 88.1 mL/min (>60); Glucose 176 mg/dL (74-106); Magnesium 2.0 mg/dL (1.6-2.6); Osmolality,Calculated 306 (275-295); Phosphorous 1.5 mg/dL (2.4-5.1); Potassium 3.7 mMol/L (3.4-5.1); Sodium 153 mMol/L (136-145); eGFR > 60 See Note
[2025-03-02] MEDS: INSULIN DEGLUDEC 5 UNIT/0.05 ML (PER 5 UNITS) 15 UNIT SC (14:34)
--- NOTE | 2025-03-02 16:12 | ESPR_ITS ---
<Statement entered by Cecilio Hinton MD - 03/02/25 16:30> I have reviewed the note and agree with the resident's assessment & plan with exceptions as below. I have personally reviewed labs, imaging, home meds/prior records, examined the patient, formulated and discussed management plan with my attending 24M with newly diagnosed DM and no other PMH. Admitted overnight to ICU for DKA. AG closed twice and patient stable to be downgraded to medical floors. Will transition to degludec 15U qday, Lispro 5U TIDWM, and ISS. Otherwise no other complaints. Patient has hypernatremia and encouraged oral hydration. Likely DC in next 24-48hrs Cecilio Hinton PGY2 Disclaimer: Even though this this note was dictated by speech recognition and even though it was carefully revised there may still be minor errors in pallet stone positioner due to voice recognition software. Documentation for date of: 03/02/25 Subjective Subjective Interval history: Patient admitted on 03/01 overnight and admitted to ICU for DKA with new onset type 2 diabetes. Patient reports 3 days prior to admission, persistent nausea and vomiting as well as increased thirst and urination. No history of diabetes. Patient is been weaned off insulin drip as of this afternoon and is set to receive degludec 15 with 5 units 3 times daily with meals, sliding scale in place. Patient also noted to have hypernatremia following resolution of DKA and was encouraged to increase free water intake.. Patient currently endorses no symptoms, denies chest pain, shortness of breath, abdominal pain or urinary symptoms. Exam Vital Signs Temp Pulse Resp BP Pulse Ox O2 Del Method 98 F 75 14 127/75 99 Room Air 03/02/25 16:00 03/02/25 16:00 03/02/25 16:00 03/02/25 16:00 03/02/25 16:00 03/02/25 16:00 Narrative Exam GENERAL: AOx3, no acute distress, young male HEENT: mucous membranes moist, bilateral sclera anicteric CARDIOVASCULAR: regular rate and rhythm, S1/S2 present, no murmurs appreciated PULMONARY: clear to auscultation bilaterally, no rales/rhonchi/wheezes ABDOMINAL: soft, non-tender, non-distended, no rebound/guarding, bowel sounds present EXTREMITIES: no peripheral edema SKIN: warm and dry, intact, no rashes NEURO: CN II-XII grossly intact, no focal deficits, alert, following commands Objective Labs 03/03/25 04:40 03/03/25 12:00 Labs: Laboratory Results - last 24 hr 03/01/25 03/01/25 03/01/25 19:00 19:37 22:58 WBC 14.7 H RBC 5.70 Hgb 17.0 H Hct 49.2 MCV 86 MCH 29.8 MCHC 34.6 RDW Std Deviation 37.6 Plt Count 448 H Neut % (Auto) 83 H Lymph % (Auto) 10 [place] % (Auto) 5 Eos % (Auto) 0 Baso % (Auto) 1 Neut # (Auto) 12.2 H Lymph # (Auto) 1.5 [place] # (Auto) 0.8 Eos # (Auto) 0.0 Baso # (Auto) 0.1 Immature Gran # (Auto) 0.18 H Absolute Nucleated RBC 0.00 Immature Gran % 1 H Nucleated RBC % 0 VBG pH 7.09 L VBG pCO2 30 L VBG pO2 39 VBG O2 Sat (Jorge) 68 L VBG Base Excess -20 L Sodium 139 Potassium 5.4 H Chloride 99 Carbon Dioxide < 10.0 L* Anion Gap 30 H BUN 15 Creatinine 2.3 H Estim Creat Clear Calc 45.7 L eGFR 40 L BUN/Creatinine Ratio 7 L Glucose 683 H* Estimated Ave Glu mg/dL 306 H Hemoglobin A1c 12.3 H Calculated Osmolality 310 H Lactic Acid 3.3 H 4.1 H* Calcium 10.5 Corrected Calcium 10.5 H Phosphorus 8.0 H Magnesium 2.7 H Total Bilirubin 0.8 AST 66 H ALT 157 H Alkaline Phosphatase 185 H Total Protein 9.2 H Albumin > 6.0 H Globulin 3.2 Albumin/Globulin Ratio 1.9 Triglycerides Cholesterol LDL Cholesterol, Calc HDL Cholesterol Cholesterol/HDL Ratio Lipase 38 Beta-Hydroxybutyrate/Acetoacetate > 6.4 H Procalcitonin 0.13 TSH Ur Collection Type Clean Catch Urine Color Lt-Yellow Urine Clarity Clear Urine pH 6.0 Ur Specific [place] 1.033 Urine Protein 1+ A Urine Glucose (UA) 4+ A Urine Ketones 4+ A Urine Blood 1+ A Urine Nitrite Negative Urine Bilirubin Negative Urine Urobilinogen (Auto) Negative Ur Leukocyte Esterase Negative Urine RBC 3 Urine WBC < 1 Ur Squamous Epith Cells 0 Urine Bacteria None Ur Culture Indicated? Not Indicated Urine Opiates Screen Negative Urine Fentanyl Screen Negative Ur Barbiturates Screen Negative U Amphetamin/Meth Scrn Negative U Benzodiazepines Scrn Negative U Cocaine Metab Screen Negative U Marijuana (THC) Screen Negative Ethyl Alcohol < 3.0 03/02/25 03/02/25 03/02/25 01:22 05:10 09:30 WBC 18.7 H RBC 5.03 Hgb 15.4 Hct 42.6 MCV 85 MCH 30.6 MCHC 36.2 RDW Std Deviation 36.9 Plt Count 358 D Neut % (Auto) 78 Lymph % (Auto) 12 [place] % (Auto) 9 Eos % (Auto) 0 Baso % (Auto) 0 Neut # (Auto) 14.5 H Lymph # (Auto) 2.2 [place] # (Auto) 1.7 H Eos # (Auto) 0.0 Baso # (Auto) 0.1 Immature Gran # (Auto) 0.22 H Absolute Nucleated RBC 0.00 Immature Gran % 1 H Nucleated RBC % 0 VBG pH VBG pCO2 VBG pO2 VBG O2 Sat (Jorge) VBG Base Excess Sodium 146 H 152 H 152 H Potassium 5.0 4.2 D 3.8 Chloride 111 H 119 H 117 H Carbon Dioxide < 10.0 L* 12.9 L* 19.7 L Anion Gap 25 H 20 H 15 BUN 12 12 11 Creatinine 1.7 H D 1.4 H 1.2 Estim Creat Clear Calc 61.9 75.1 88.1 eGFR 57 L > 60 > 60 BUN/Creatinine Ratio 7 L 9 L 9 L Glucose 485 H* D 247 H D [address] Glu mg/dL Hemoglobin A1c Calculated Osmolality 311 H 309 H 309 H Lactic Acid 2.5 H 1.4 1.9 Calcium 9.1 9.0 8.4 Corrected Calcium 9.1 9.0 8.4 L Phosphorus 3.7 1.7 L 1.7 L Magnesium 3.0 H 2.5 2.4 Total Bilirubin AST ALT Alkaline Phosphatase Total Protein Albumin 5.0 D 4.7 4.0 D Globulin Albumin/Globulin Ratio Triglycerides 354 H Cholesterol 167 LDL Cholesterol, Calc 69 HDL Cholesterol 27 L Cholesterol/HDL Ratio 6.2 Lipase Beta-Hydroxybutyrate/Acetoacetate Procalcitonin TSH 0.64 Ur Collection Type Urine Color Urine Clarity Urine pH Ur Specific [place] Urine Protein Urine Glucose (UA) Urine Ketones Urine Blood Urine Nitrite Urine Bilirubin Urine Urobilinogen (Auto) Ur Leukocyte Esterase Urine RBC Urine WBC Ur Squamous Epith Cells Urine Bacteria Ur Culture Indicated? Urine Opiates Screen Urine Fentanyl Screen Ur Barbiturates Screen U Amphetamin/Meth Scrn U Benzodiazepines Scrn U Cocaine Metab Screen U Marijuana (THC) Screen Ethyl Alcohol 03/02/25 13:08 WBC RBC Hgb Hct MCV MCH MCHC RDW Std Deviation Plt Count Neut % (Auto) Lymph % (Auto) [place] % (Auto) Eos % (Auto) Baso % (Auto) Neut # (Auto) Lymph # (Auto) [place] # (Auto) Eos # (Auto) Baso # (Auto) Immature Gran # (Auto) Absolute Nucleated RBC Immature Gran % Nucleated RBC % VBG pH VBG pCO2 VBG pO2 VBG O2 Sat (Jorge) VBG Base Excess Sodium 153 H Potassium 3.7 Chloride 117 H Carbon Dioxide 22.7 Anion Gap 13 BUN 11 Creatinine 1.2 Estim Creat Clear Calc 88.1 eGFR > 60 BUN/Creatinine Ratio 9 L Glucose [address] Glu mg/dL Hemoglobin A1c Calculated Osmolality 306 H Lactic Acid Calcium 8.8 Corrected Calcium 8.8 Phosphorus 1.5 L Magnesium 2.0 Total Bilirubin AST ALT Alkaline Phosphatase Total Protein Albumin 4.3 Globulin Albumin/Globulin Ratio Triglycerides Cholesterol LDL Cholesterol, Calc HDL Cholesterol Cholesterol/HDL Ratio Lipase Beta-Hydroxybutyrate/Acetoacetate Procalcitonin TSH Ur Collection Type Urine Color Urine Clarity Urine pH Ur Specific [place] Urine Protein Urine Glucose (UA) Urine Ketones Urine Blood Urine Nitrite Urine Bilirubin Urine Urobilinogen (Auto) Ur Leukocyte Esterase Urine RBC Urine WBC Ur Squamous Epith Cells Urine Bacteria Ur Culture Indicated? Urine Opiates Screen Urine Fentanyl Screen Ur Barbiturates Screen U Amphetamin/Meth Scrn U Benzodiazepines Scrn U Cocaine Metab Screen U Marijuana (THC) Screen Ethyl Alcohol ABG Interpretation ABG results: 03/01/25 19:37 VBG pH 7.09 L VBG pCO2 30 L VBG pO2 39 VBG Base Excess -20 L Quality Measures Quality Measures none Assessment & Plan Assessment Current Active Medications: Generic Name Dose Route Start Last Admin Trade Name Freq PRN Reason Stop Dose Admin Dextrose 25 ml 03/01/25 21:02 Dextrose 50%-Water Inj 50 Ml Syringe IV PRNMRX1 PRN Blood Sugar - Low Insulin Degludec 15 unit 03/03/25 09:00 Insulin Degludec 5 Unit/0.05 Ml (Per 5 Units) SC 04/02/25 08:59 QDAY SLOAN Ondansetron HCl 4 mg 03/02/25 16:06 Ondansetron Inj 2 Mg/Ml Inj 2 Ml IVP 04/01/25 16:05 Q6HR PRN NAUSEA OR VOMITING Protocol Plan Florencio Acevedogaticia 24M no pmhx presented to [facility] ED 03/02 for N/V, admitted for DKA and newly onset type II DM. #Diabetic ketoacidosis, resolved #New onset DM2 Presented with 3 days of persistent nausea vomiting, endorses increased urinary output as well as water intake. No prior history of diabetes. On admission BHB> 6, bicarb<10, glucose 683, lactic acid 3.3. A1c 12.3 Plan: - Degludac 15 with 5u with meals - SSI step [address] - F/u C peptide, [id number] antibody test - Carb consistent diet #Hypernatremia On admission Na 193, however on downgrade, Na 153. Likely 2/2 dehydration following resolution of DKA. Free water deficit 1.2L Plan: - Encourage free water intake - CTM Na - Consider D5W and Ulytes if persists or uptrends #LIAM, resolved #AGMA 2/2 DKA versus LA, resolved #Hyperkalemia, resolved #Hypomagnesemia, resolved #Hypercalcemia, resolved #Hyperphosphatemia, resolved #Hypophosphatemia On admission Cr 2.3, BUN 15, K 5.4, Mg 2.7, Phos 8, Ca 10.5, AG 30, BHB >6, bicalb <10, glucose 683, lactic 3.3 s/p IVF in ICU Plan: - CTM renal panel - Recheck and replete as necessary #Leukocytosis On admission WBC 14.7->18.7 Likely reactive 2/2 DKA. Low suspicion for infectious cause due to lack of symptoms at this time. CXR neg for active disease Plan: - CTM CBC #Hx alcohol use #Hx cocaine use Endorses quit one month ago. Previously drank 4-5 beers daily for 5 years. Plan: - Extensive substance use counseling Hospital management: Lines: PIV Diet: Carb consistent Bowel: Senna GI prophylaxis: not indicated DVT prophylaxis: not indicated Disposition: med tele, post DKA observation, hypernatremia CODE STATUS: FULL CODE Plan of care discussed with attending Dr. Guan, and PGY-2 Dr. Macias. Verna Pereira DO PGY-1 Internal Medicine Attending Provider Attestation/Addendum I have discussed and was present for the essential components of the history, physical examination, diagnosis, and treatment plan with the resident. I agree with the patient's care as documented by the resident and amended herein by me. Rik Guan DO. Although this document has been carefully reviewed, there may still be some phonetic and other typographical errors. These errors are purely grammatical due to imperfections in the software program and should not be construed in any way to compromise the substance of the patient's medical care during this visit.
[2025-03-02] MEDS: NAPH,KPH MBDB 1 PACKET (1.5 GM) 2 PACKET PO (16:35)
[2025-03-02] MEDS: INSULIN LISPRO (AdmeLOG) 1 UNIT/0.01 ML UNIT SC ×2 (17:11→20:51)
[2025-03-02] MEDS: INSULIN LISPRO (AdmeLOG) 1 UNIT/0.01 ML UNIT 5 UNIT SC (17:11)
[2025-03-02 17:20] LABS: Misc Send Out* See Sep Rpt
--- NOTE | 2025-03-02 18:44 | ESPR_ITS ---
Documentation for date of: 03/02/25 Subjective Subjective Interval history: 24 y/o M without significant past medical history who was brought to the ED by his mother for persistent nausea/vomiting over the last 3 days. Patient started experiencing severe nausea 72 hours ago, with intermittent episodes of nonbilious nonbloody vomitus for 10+ episodes over the last 3 days. His last meal was 72 hours ago and last bowel movement was yesterday. He has never experienced similar symptoms in the past. He denies any fevers, systemic symptoms or any signs of infection. He denies any sick contacts or recent travel as well. He does complain of bodyaches, which have worsened over the last 24 hours. There is also some associated dizziness, however denies any episodes of syncope. In the ED, vitals showed elevated blood pressure 149/96, tachypnea RR 24?26 and tachycardia HR 133-138 bpm. Temperature within normal limits. Initial laboratory workup remarkable for leukocytosis WBC 14.7 with neutrophil predominance, hemoconcentration Hb 17, platelet 448, albumin > 6 and protein 9.2. CHEM panel showed hyperkalemia 5.4, hypermagnesemia 2.7, hyperphosphatemia 8 and hypercalcemia 10.5. Blood glucose level 683, BHB > 6.4, VBG pH 7.09 and CO2 30. AG 30 and Lactic acid noted to be 3.3 and A1c 12.3%. Patient also had mild transaminitis AST 66 ALT 157 and ALP 185. Patient admitted to ICU for management of acute diabetic ketoacidosis, in the setting of new onset diabetes mellitus. Interval history: 03/02/2025: Patient was treated with DKA protocol. Reported significant improvement in his symptoms as acidosis improved. During course of treatment, noted to have hypernatremia, corrected sodium up to 154. Free water deficit calculated 1.9, recommend patient orally hydrate once DKA treatment completed. Anion gap closed on 2 consecutive lab draws, patient transition to subQ insulin 15 units daily, with 5 units lispro TID AC, and insulin sliding scale. Patient given food, was able to tolerate PO intake. Patient downgraded to floors for further management. Exam Vital Signs Temp Pulse Resp BP Pulse Ox O2 Del Method 98 F 75 14 127/75 99 Room Air 03/02/25 16:00 03/02/25 16:00 03/02/25 16:00 03/02/25 16:00 03/02/25 16:00 03/02/25 16:00 Narrative Exam PE: Gen: Well-developed and well-nourished. HEENT: NCAT, PERRLA, EOMI, anicteric conjunctivae. Dry mucus membranes. CVS: normal S1 and S2. RRR. No M/R/G. Resp: CTA B/L. No rhonchi, rales, crackles or wheezing. Abd: soft, non-tender, non-distended. BS+ in all 4 quadrants. MSK: Good ROM in BUE & BLE. No edema or rash. Neuro: CN II-XII grossly intact. Strength 5/5 in BUE & BLE. Alert and oriented x3. Psych: appropriate mood and affect. Objective Labs 03/04/25 05:30 03/04/25 05:30 Labs: Laboratory Results - last 24 hr 03/01/25 03/01/25 03/01/25 19:00 19:37 22:58 WBC 14.7 H RBC 5.70 Hgb 17.0 H Hct 49.2 MCV 86 MCH 29.8 MCHC 34.6 RDW Std Deviation 37.6 Plt Count 448 H Neut % (Auto) 83 H Lymph % (Auto) 10 [place] % (Auto) 5 Eos % (Auto) 0 Baso % (Auto) 1 Neut # (Auto) 12.2 H Lymph # (Auto) 1.5 [place] # (Auto) 0.8 Eos # (Auto) 0.0 Baso # (Auto) 0.1 Immature Gran # (Auto) 0.18 H Absolute Nucleated RBC 0.00 Immature Gran % 1 H Nucleated RBC % 0 VBG pH 7.09 L VBG pCO2 30 L VBG pO2 39 VBG O2 Sat (Jorge) 68 L VBG Base Excess -20 L Sodium 139 Potassium 5.4 H Chloride 99 Carbon Dioxide < 10.0 L* Anion Gap 30 H BUN 15 Creatinine 2.3 H Estim Creat Clear Calc 45.7 L eGFR 40 L BUN/Creatinine Ratio 7 L Glucose 683 H* Estimated Ave Glu mg/dL 306 H Hemoglobin A1c 12.3 H Calculated Osmolality 310 H Lactic Acid 3.3 H 4.1 H* Calcium 10.5 Corrected Calcium 10.5 H Phosphorus 8.0 H Magnesium 2.7 H Total Bilirubin 0.8 AST 66 H ALT 157 H Alkaline Phosphatase 185 H Total Protein 9.2 H Albumin > 6.0 H Globulin 3.2 Albumin/Globulin Ratio 1.9 Triglycerides Cholesterol LDL Cholesterol, Calc HDL Cholesterol Cholesterol/HDL Ratio Lipase 38 Beta-Hydroxybutyrate/Acetoacetate > 6.4 H Procalcitonin 0.13 TSH Ur Collection Type Clean Catch Urine Color Lt-Yellow Urine Clarity Clear Urine pH 6.0 Ur Specific [place] 1.033 Urine Protein 1+ A Urine Glucose (UA) 4+ A Urine Ketones 4+ A Urine Blood 1+ A Urine Nitrite Negative Urine Bilirubin Negative Urine Urobilinogen (Auto) Negative Ur Leukocyte Esterase Negative Urine RBC 3 Urine WBC < 1 Ur Squamous Epith Cells 0 Urine Bacteria None Ur Culture Indicated? Not Indicated Urine Opiates Screen Negative Urine Fentanyl Screen Negative Ur Barbiturates Screen Negative U Amphetamin/Meth Scrn Negative U Benzodiazepines Scrn Negative U Cocaine Metab Screen Negative U Marijuana (THC) Screen Negative Ethyl Alcohol < 3.0 03/02/25 03/02/25 03/02/25 01:22 05:10 09:30 WBC 18.7 H RBC 5.03 Hgb 15.4 Hct 42.6 MCV 85 MCH 30.6 MCHC 36.2 RDW Std Deviation 36.9 Plt Count 358 D Neut % (Auto) 78 Lymph % (Auto) 12 [place] % (Auto) 9 Eos % (Auto) 0 Baso % (Auto) 0 Neut # (Auto) 14.5 H Lymph # (Auto) 2.2 [place] # (Auto) 1.7 H Eos # (Auto) 0.0 Baso # (Auto) 0.1 Immature Gran # (Auto) 0.22 H Absolute Nucleated RBC 0.00 Immature Gran % 1 H Nucleated RBC % 0 VBG pH VBG pCO2 VBG pO2 VBG O2 Sat (Jroge) VBG Base Excess Sodium 146 H 152 H 152 H Potassium 5.0 4.2 D 3.8 Chloride 111 H 119 H 117 H Carbon Dioxide < 10.0 L* 12.9 L* 19.7 L Anion Gap 25 H 20 H 15 BUN 12 12 11 Creatinine 1.7 H D 1.4 H 1.2 Estim Creat Clear Calc 61.9 75.1 88.1 eGFR 57 L > 60 > 60 BUN/Creatinine Ratio 7 L 9 L 9 L Glucose 485 H* D 247 H D [address] Glu mg/dL Hemoglobin A1c Calculated Osmolality 311 H 309 H 309 H Lactic Acid 2.5 H 1.4 1.9 Calcium 9.1 9.0 8.4 Corrected Calcium 9.1 9.0 8.4 L Phosphorus 3.7 1.7 L 1.7 L Magnesium 3.0 H 2.5 2.4 Total Bilirubin AST ALT Alkaline Phosphatase Total Protein Albumin 5.0 D 4.7 4.0 D Globulin Albumin/Globulin Ratio Triglycerides 354 H Cholesterol 167 LDL Cholesterol, Calc 69 HDL Cholesterol 27 L Cholesterol/HDL Ratio 6.2 Lipase Beta-Hydroxybutyrate/Acetoacetate Procalcitonin TSH 0.64 Ur Collection Type Urine Color Urine Clarity Urine pH Ur Specific [place] Urine Protein Urine Glucose (UA) Urine Ketones Urine Blood Urine Nitrite Urine Bilirubin Urine Urobilinogen (Auto) Ur Leukocyte Esterase Urine RBC Urine WBC Ur Squamous Epith Cells Urine Bacteria Ur Culture Indicated? Urine Opiates Screen Urine Fentanyl Screen Ur Barbiturates Screen U Amphetamin/Meth Scrn U Benzodiazepines Scrn U Cocaine Metab Screen U Marijuana (THC) Screen Ethyl Alcohol 03/02/25 13:08 WBC RBC Hgb Hct MCV MCH MCHC RDW Std Deviation Plt Count Neut % (Auto) Lymph % (Auto) [place] % (Auto) Eos % (Auto) Baso % (Auto) Neut # (Auto) Lymph # (Auto) [place] # (Auto) Eos # (Auto) Baso # (Auto) Immature Gran # (Auto) Absolute Nucleated RBC Immature Gran % Nucleated RBC % VBG pH VBG pCO2 VBG pO2 VBG O2 Sat (Jorge) VBG Base Excess Sodium 153 H Potassium 3.7 Chloride 117 H Carbon Dioxide 22.7 Anion Gap 13 BUN 11 Creatinine 1.2 Estim Creat Clear Calc 88.1 eGFR > 60 BUN/Creatinine Ratio 9 L Glucose [address] Glu mg/dL Hemoglobin A1c Calculated Osmolality 306 H Lactic Acid Calcium 8.8 Corrected Calcium 8.8 Phosphorus 1.5 L Magnesium 2.0 Total Bilirubin AST ALT Alkaline Phosphatase Total Protein Albumin 4.3 Globulin Albumin/Globulin Ratio Triglycerides Cholesterol LDL Cholesterol, Calc HDL Cholesterol Cholesterol/HDL Ratio Lipase Beta-Hydroxybutyrate/Acetoacetate Procalcitonin TSH Ur Collection Type Urine Color Urine Clarity Urine pH Ur Specific [place] Urine Protein Urine Glucose (UA) Urine Ketones Urine Blood Urine Nitrite Urine Bilirubin Urine Urobilinogen (Auto) Ur Leukocyte Esterase Urine RBC Urine WBC Ur Squamous Epith Cells Urine Bacteria Ur Culture Indicated? Urine Opiates Screen Urine Fentanyl Screen Ur Barbiturates Screen U Amphetamin/Meth Scrn U Benzodiazepines Scrn U Cocaine Metab Screen U Marijuana (THC) Screen Ethyl Alcohol ABG Interpretation ABG results: 03/01/25 19:37 VBG pH 7.09 L VBG pCO2 30 L VBG pO2 39 VBG Base Excess -20 L Quality Measures Quality Measures VTE prophylaxis Assessment & Plan Assessment Current Active Medications: Generic Name Dose Route Start Last Admin Trade Name Freq PRN Reason Stop Dose Admin Acetaminophen 650 mg 03/02/25 16:12 Acetaminophen 325 Mg Tablet PO 04/01/25 16:11 Q6HR PRN Fever >100.4 or pain Dextrose 25 ml 03/01/25 21:02 Dextrose 50%-Water Inj 50 Ml Syringe IV [id number] PRN Blood Sugar - Low Dextrose 25 ml 03/02/25 16:12 Dextrose 50%-Water Inj 50 Ml Syringe IV 04/01/25 16:11 Q15MIN PRN BG 50-70 responsive npo pt Dextrose 50 ml 03/02/25 16:12 Dextrose 50%-Water Inj 50 Ml Syringe IV 04/01/25 16:11 Q15MIN PRN BG <50 OR BG <70 & pt unresponsive Glucagon 1 mg 03/02/25 16:12 Glucagon Inj 1 Mg Vial IM Q15MIN PRN BG <70, and no IV access Insulin Degludec 15 unit 03/03/25 09:00 Insulin Degludec 5 Unit/0.05 Ml (Per 5 Units) SC 04/02/25 08:59 QDAY SLOAN Insulin Human Lispro 0 unit 03/02/25 17:00 03/02/25 17:11 Insulin Lispro (Admelog) 1 Unit/0.01 Ml Unit SC 04/01/25 16:59 2 unit ACHS SLOAN Administration Protocol Insulin Human Lispro 5 unit 03/02/25 17:30 03/02/25 17:11 Insulin Lispro (Admelog) 1 Unit/0.01 Ml Unit SC 04/01/25 17:29 5 unit TIDWM SLOAN Administration Ondansetron HCl 4 mg 03/02/25 16:06 Ondansetron Inj 2 Mg/Ml Inj 2 Ml IVP 04/01/25 16:05 Q6HR PRN NAUSEA OR VOMITING Protocol Sennosides 1 tab 10/15/25 16:23 Senna Tablet PO 04/01/25 16:22 QDAY PRN CONSTIPATION Protocol Plan Patient is a 24-year-old male admitted for acute DKA in the setting of new onset diabetes mellitus. NEURO: No active problems CVS: #Sinus tachycardia (resolved) #History of substance use- cocaine Dx: - HR trending 130-135 bpm on admission, now WNL. - K 6.7 at the time of admission - Per patient, last use of cocaine 1 month ago. Endorses he has quit completely. Rx: - Likely in the setting of DKA, improved with fluids and insulin drip PULM: No active problems GI/Hep: #Intractable nausea/vomiting?resolved Dx: - severe nausea 72 hours prior to admission, with intermittent episodes of nonbilious nonbloody vomitus x 10+ episodes over the last 3 days. - last meal was 72 hours prior to admission and last bowel movement was day before admission. Rx: - Transitioned to oral intake, well tolerated - As needed Zofran 4 mg every 6 hours for N/V RENAL: #Hypernatremia, asymptomatic Dx: - Corrected sodium 148 on admission, increased to 154 - Patient notably dry on exam, received fluids as per DKA protocol - Free water deficit 1.9 L Rx: - Encourage oral hydration - Monitor sodium levels daily #AGMA 2/2 DKA versus LA (resolved) #Hyperkalemia (resolved) #Hypermagnesemia (resolved) #Hypercalcemia (resolved) #Hyperphosphatemia (resolved) #Hypophosphatemia Dx: - hyperkalemia 5.4, down to 3.7 - hypermagnesemia 2.7, down to 2.0 - hyperphosphatemia 8, down to 1.5 after 800 mg sevelamer x1 - hypercalcemia 10.5, down to 8.8 - AG 30 at the time of admission - BHB >6 and Bicarb <10, glucose 683 at time of admission - Lactic acid 3.3, down to 1.9 Rx: - Acidosis and electrolyte derangements resolved after completing DKA protocol - Hypophosphatemia after sevelamer - Neutra-phos packets x2 #LIAM (resolved) Dx: - RFT: Creatinine 2.3, BUN 15 and GFR 40 (unknown baseline) - After DKA treatment, BUN 11, Creatinine 1.2, eGFR >60 Rx: - Maintain oral hydration ENDO: #Acute DKA #New onset DM Dx: - Blood glucose level 683 - BHB > 6.4 - VBG pH 7.09 and CO2 30. - AG 30 - Hb A1c 12.3% Rx: - Anion gap closed on consecutive blood draws - Patient transitioned to subQ insulin - Long acting insulin 15 units daily - Lispro 5 units TID with meals - ISS - C-Peptide pending - Referral to dietitian for diabetic counseling ID: No active problems HEME/ONC: #Leukocytosis Dx: - WBC 18.7, up from 14.7 despite fluids - Denies fevers, chills, cough - Afebrile Rx: - Likely reactive due to DKA - No active intervention ICU Health maintenance: Diet: Carb consistent DVT ppx: SCDs and ambulation. Lines: Peripheral IV GI ppx: Not indicated Code status: FULL CODE Plan of care discussed with attending Dr. Delgado. Pablo Cueva MD PGY-2 Attending Provider Attestation/Addendum Patient seen and examined with above resident, Pablo Cueva MD. I agree with the findings, assessment, and plan of care as document except for any differences below. Patient admitted with diabetic ketoacidosis, new onset diabetes. Will require diabetes education prior to discharge with new initiation of insulin and need for blood glucose monitoring. Patient appropriately volume resuscitated with preservation of renal function and normalization of acid-base disorder. No underlying infection or ischemic etiology. Testing has been sent for determination of intrinsic pancreatic endocrine function and should be followed up as an outpatient. Patient remains stable after transition to subcutaneous regimen for transfer to the medical hess prior to discharge in the coming days. Total critical care time: I personally spent 35 minutes for review of physiologic parameters, directing plan of care throughout the day, coordination of care with with medicine. This is exclusive of time spent teaching housestaff or performing separate billable procedures. Patient remained at significant risk for further morbidity and mortality warranting close monitoring and care only available in the ICU. Critical care services required for diabetic ketoacidosis, hypernatremia, acute prerenal azotemia/LIAM.
[2025-03-03] VITALS: BP 121/72; PULSE 73; RESP 18; TEMP 36.4; O2SAT 99
[2025-03-03 04:00] VITALS: BP 116/72; PULSE 82; RESP 18; TEMP 36.5; O2SAT 98
[2025-03-03 05:35] LABS: Basophils # (Auto) 0.0 Thou/mm3 (0.0-0.2); Basophils % (Auto) 1 % (0-2.5); Eosinophils # (Auto) 0.3 Thou/mm3 (0.0-0.5); Eosinophils % (Auto) 3 % (0-10); Hematocrit 35.8 % (41.0-53.0); Hemoglobin 12.9 g/dL (13.5-16.0); Immature Granulocytes Auto 0.05 Thou/mm3 (0.00-0.00); Lymphocytes # (Auto) 1.6 Thou/mm3 (1.0-4.8); Lymphocytes % (Auto) 20 % (10-50); Mean Corpuscular HGB Conc 36.0 g/dl (31.0-37.0); Mean Corpuscular Hemoglobin 30.9 pg (25.0-35.0); Mean Corpuscular Volume 86 fL (80-100); Monocytes # (Auto) 0.7 Thou/mm3 (0.0-0.8); Monocytes % (Auto) 9 % (0-12); Neutrophils # (Auto) 5.4 Thou/mm3 (1.8-7.7); Neutrophils % (Auto) 67 % (37-80); Nucleated Red Blood Cell # 0.00 Thou/mm3 (0.00-0.00); Nucleated Red Blood Cell % 0 /100 WBC (0); Platelet Count 192 Thou/mm3 (140-440); RDW Standard Deviation 38.9 fL (35.1-43.9); Red Blood Count 4.17 Miln/mm3 (4.50-5.90); White Blood Count 8.1 Thou/mm3 (3.8-10.6)
[2025-03-03 06:32] LABS: Alanine Aminotransferase 65 U/L (10-49); Albumin, Serum 3.7 gm/dL (3.5-5.0); Albumin/Globulin Ratio 1.9 (1.2-2.2); Alkaline Phosphatase 96 U/L (46-116); Anion Gap 16 (7-16); Aspartate Amino Transferase 27 U/L (0-34); BUN/Creatinine Ratio 10 Ratio (12-20); Bilirubin,Total 1.3 mg/dL (0.3-1.2); Blood Urea Nitrogen 11 mg/dL (9-23); Calcium 8.4 mg/dL (8.3-10.6); Calcium (Corrected) 8.6 mg/dL (8.5-10.1); Carbon Dioxide 21.4 mMol/L (20.0-31.0); Chloride 106 mMol/L (98-107); Creatinine (Component) 1.1 mg/dL (0.6-1.3); Estimated Creatinine Clearance 96.1 mL/min (>60); Globulin 2.0 gm/dL (2.3-3.5); Glucose 327 mg/dL (74-106); Magnesium 1.8 mg/dL (1.6-2.6); Osmolality,Calculated 297 (275-295); Phosphorous 2.5 mg/dL (2.4-5.1); Potassium 3.6 mMol/L (3.4-5.1); Sodium 143 mMol/L (136-145); Total Protein 5.7 gm/dL (5.7-8.2); eGFR > 60 See Note
[2025-03-03 07:45] VITALS: BP 130/80; PULSE 63; RESP 18; TEMP 36.4; O2SAT 99
[2025-03-03] MEDS: INSULIN LISPRO (AdmeLOG) 1 UNIT/0.01 ML UNIT SC ×4 (07:50→20:13)
[2025-03-03] MEDS: INSULIN LISPRO (AdmeLOG) 1 UNIT/0.01 ML UNIT 5 UNIT SC (07:51)
[2025-03-03] MEDS: INSULIN DEGLUDEC 5 UNIT/0.05 ML (PER 5 UNITS) 20 UNIT SC (09:15)
--- NOTE | 2025-03-03 11:16 | ESPR_ITS ---
Documentation for date of: 03/03/25 Subjective Subjective Interval history: Patient was seen examined at bedside this morning. No acute overnight events. Patient's sugars this morning were in the 300s therefore titrated his insulin degludec to 20 units daily and increase his lispro to 8 units 3 times daily along with the sliding scale. Patient's anion gap also seems to be higher today at 16 therefore we will order repeat renal panel for later on today. Will keep patient today until we adequately control his sugars. Expect possible discharge in next 24 to 48 hours. Exam Vital Signs Temp Pulse Resp BP Pulse Ox O2 Del Method 97.6 F 63 18 130/80 99 Room Air 03/03/25 07:45 03/03/25 07:45 03/03/25 07:45 03/03/25 07:45 03/03/25 07:45 03/03/25 07:45 Narrative Exam General: A/O x3, no acute distress, well-nourished, well-developed Eyes: PERRL, EOMI. Anicteric, vision grossly intact. Ears: No ear pain, no ear discharge, Hearing grossly intact. Nose: No nasal discharge. Mouth/Throat: Moist mucous membranes, no redness, no lesions. Neck: Neck supple, non-tender, no cervical lymphadenopathy. Lungs: Clear RUDDY to auscultation and percussion, No accessory muscle use. Cardio: Normal S1/S2, regular rhythm, no murmurs, no JVD or carotid bruits. Abdomen: Soft, non-tender, no palpable masses, peristalsis present, no guarding or rebound. Extremities: Symmetrical, no significant deformities, no peripheral edema , non-tender, peripheral pulses presents. Skin: No rashes, no lesions, warm to touch. Neuro: No focal neurological deficits. motor and sensory intact Psych: Cooperative, appropriate mood and effect. Objective Labs 03/03/25 04:40 03/03/25 12:00 Labs: Laboratory Results - last 24 hr 03/02/25 03/03/25 13:08 04:40 WBC 8.1 D RBC 4.17 L Hgb 12.9 L D Hct 35.8 L MCV 86 MCH 30.9 MCHC 36.0 RDW Std Deviation 38.9 Plt Count 192 D Neut % (Auto) 67 Lymph % (Auto) 20 [place] % (Auto) 9 Eos % (Auto) 3 Baso % (Auto) 1 Neut # (Auto) 5.4 Lymph # (Auto) 1.6 [place] # (Auto) 0.7 Eos # (Auto) 0.3 Baso # (Auto) 0.0 Immature Gran # (Auto) 0.05 H Absolute Nucleated RBC 0.00 Immature Gran % 1 H Nucleated RBC % 0 Sodium 153 H 143 D Potassium 3.7 3.6 Chloride 117 H 106 Carbon Dioxide 22.7 21.4 Anion Gap 13 16 BUN 11 11 Creatinine 1.2 1.1 Estim Creat Clear Calc 88.1 96.1 eGFR > 60 > 60 BUN/Creatinine Ratio 9 L 10 L Glucose 176 H D 327 H D Calculated Osmolality 306 H 297 H Calcium 8.8 8.4 Corrected Calcium 8.8 8.6 Phosphorus 1.5 L 2.5 Magnesium 2.0 1.8 Total Bilirubin 1.3 H D AST 27 ALT 65 H Alkaline Phosphatase 96 D Total Protein 5.7 Albumin 4.3 3.7 D Globulin 2.0 L Albumin/Globulin Ratio 1.9 ABG Interpretation ABG results: 03/01/25 19:37 VBG pH 7.09 L VBG pCO2 30 L VBG pO2 39 VBG Base Excess -20 L Quality Measures Quality Measures VTE prophylaxis Assessment & Plan Assessment Current Active Medications: Generic Name Dose Route Start Last Admin Trade Name Freq PRN Reason Stop Dose Admin Acetaminophen 650 mg 03/02/25 16:12 Acetaminophen 325 Mg Tablet PO 04/01/25 16:11 Q6HR PRN Fever >100.4 or pain Dextrose 25 ml 03/01/25 21:02 Dextrose 50%-Water Inj 50 Ml Syringe IV [id number] PRN Blood Sugar - Low Dextrose 25 ml 03/02/25 16:12 Dextrose 50%-Water Inj 50 Ml Syringe IV 04/01/25 16:11 Q15MIN PRN BG 50-70 responsive npo pt Dextrose 50 ml 03/02/25 16:12 Dextrose 50%-Water Inj 50 Ml Syringe IV 04/01/25 16:11 Q15MIN PRN BG <50 OR BG <70 & pt unresponsive Glucagon 1 mg 03/02/25 16:12 Glucagon Inj 1 Mg Vial IM Q15MIN PRN BG <70, and no IV access Insulin Degludec 20 unit 03/03/25 09:00 03/03/25 09:15 Insulin Degludec 5 Unit/0.05 Ml (Per 5 Units) SC 04/02/25 08:59 20 unit QDAY SLOAN Administration Insulin Human Lispro 0 unit 03/02/25 17:00 03/03/25 07:50 Insulin Lispro (Admelog) 1 Unit/0.01 Ml Unit SC 04/01/25 16:59 3 unit ACHS SLOAN Administration Protocol Insulin Human Lispro 8 unit 03/03/25 12:00 Insulin Lispro (Admelog) 1 Unit/0.01 Ml Unit SC 04/02/25 11:59 TIDWM [facility] Ondansetron HCl 4 mg 03/02/25 16:06 Ondansetron Inj 2 Mg/Ml Inj 2 Ml IVP 04/01/25 16:05 Q6HR PRN NAUSEA OR VOMITING Protocol Sennosides 1 tab 03/02/25 16:23 Senna Tablet PO 04/01/25 16:22 QDAY PRN CONSTIPATION Protocol Plan 24M no pmhx presented to [facility] ED 03/02 for N/V, admitted for DKA and newly onset type II DM. #Diabetic ketoacidosis, resolved #New onset DM2 Presented with 3 days of persistent nausea vomiting, endorses increased urinary output as well as water intake. No prior history of diabetes. On admission BHB> 6, bicarb<10, glucose 683, lactic acid 3.3. A1c 12.3 Bicarb 21.4 and AG 16 today Plan: - Degludac 20 with lispro 8u with meals - SSI step [address] - F/u C peptide, [id number] antibody test - Carb consistent low diet #Hypernatremia On admission Na 193, however on downgrade, Na 143 Likely 2/2 dehydration following resolution of DKA. Free water deficit 1.2L Plan: - Encourage free water intake - CTM Na #LIAM, resolved #AGMA 2/2 DKA versus LA, resolved #Hyperkalemia, resolved #Hypomagnesemia, resolved #Hypercalcemia, resolved #Hyperphosphatemia, resolved #Hypophosphatemia On admission Cr 2.3, BUN 15, K 5.4, Mg 2.7, Phos 8, Ca 10.5, AG 30, BHB >6, bicalb <10, glucose 683, lactic 3.3 s/p IVF in ICU Plan: - CTM renal panel - Recheck and replete as necessary #Leukocytosis On admission WBC 14.7->18.7-->8.1 Likely reactive 2/2 DKA. Low suspicion for infectious cause due to lack of symptoms at this time. CXR neg for active disease Plan: - CTM CBC #Hx alcohol use #Hx cocaine use Endorses quit one month ago. Previously drank 4-5 beers daily for 5 years. Plan: - Extensive substance use counseling Disposition: Patient pending better BG control Diet: carb low GI prophylaxis: none DVT prophylaxis: SCDs Code: Full Case disclosed with Attending Dr. Freida Hinton PGY2 Disclaimer: Even though this this note was dictated by speech recognition and even though it was carefully revised there may still be minor errors in database technician due to voice recognition software. Attending Provider Attestation/Addendum I have discussed and was present for the essential components of the history, physical examination, diagnosis, and treatment plan with the resident. I agree with the patient's care as documented by the resident and amended herein by me. Rik Guan DO. Although this document has been carefully reviewed, there may still be some phonetic and other typographical errors. These errors are purely grammatical due to imperfections in the software program and should not be construed in any way to compromise the substance of the patient's medical care during this visit. Patient seen and evaluated this AM. No acute events overnight, vital signs stable, patient afebrile, blood glucose 293 this morning, labs largely unremarkable with exception of his anion gap which was 16, slight uptrend. Insulin uptitrated this morning to degludec 20 units daily, lispro 8 units 3 times daily AC and sliding scale insulin. Possible DC tomorrow if patient continues to improve and blood sugars are better controlled, as well as patient is tolerating diet.
--- NOTE | 2025-03-03 11:22 | PC.SS ---
Patient is alert/oriented. Patient was able to verify demographics. Patient was admitted for DKA. Patient states he resides with his mother. Patient is independent with ADL's. No DME. Patient is newly diagnosis with diabetes. He has already met with RD. PCP; [facility]. Pharmacy: [facility]. Transportation: patient drives. Discharge plan is to return home. Alt medical decision maker: Mother, Justyna Crenshaw,
[2025-03-03 12:00] VITALS: BP 127/89; PULSE 70; RESP 18; TEMP 36.3; O2SAT 97
[2025-03-03] MEDS: INSULIN LISPRO (AdmeLOG) 1 UNIT/0.01 ML UNIT 8 UNIT SC ×2 (12:08→17:36)
[2025-03-03 12:45] LABS: Albumin, Serum 4.1 gm/dL (3.5-5.0); Anion Gap 15 (7-16); BUN/Creatinine Ratio 12 Ratio (12-20); Blood Urea Nitrogen 12 mg/dL (9-23); Calcium 8.8 mg/dL (8.3-10.6); Calcium (Corrected) 8.8 mg/dL (8.5-10.1); Carbon Dioxide 22.6 mMol/L (20.0-31.0); Chloride 104 mMol/L (98-107); Creatinine (Component) 1.0 mg/dL (0.6-1.3); Estimated Creatinine Clearance 105.8 mL/min (>60); Glucose 289 mg/dL (74-106); Osmolality,Calculated 293 (275-295); Phosphorous 3.4 mg/dL (2.4-5.1); Potassium 3.6 mMol/L (3.4-5.1); Sodium 142 mMol/L (136-145); eGFR > 60 See Note
[2025-03-03 16:00] VITALS: BP 117/67; PULSE 77; RESP 18; TEMP 36.1; O2SAT 99
[2025-03-03 18:00] VITALS: BP 117/67; PULSE 77; RESP 19; TEMP 36.1; O2SAT 99
[2025-03-04] VITALS: BP 119/60; PULSE 65; RESP 17; TEMP 37; O2SAT 100
[2025-03-04 04:00] VITALS: BP 107/56; PULSE 68; RESP 16; TEMP 36.1; O2SAT 99
[2025-03-04 05:52] LABS: Basophils # (Auto) 0.0 Thou/mm3 (0.0-0.2); Basophils % (Auto) 1 % (0-2.5); Eosinophils # (Auto) 0.2 Thou/mm3 (0.0-0.5); Eosinophils % (Auto) 4 % (0-10); Hematocrit 35.7 % (41.0-53.0); Hemoglobin 12.7 g/dL (13.5-16.0); Immature Granulocytes Auto 0.03 Thou/mm3 (0.00-0.00); Lymphocytes # (Auto) 2.5 Thou/mm3 (1.0-4.8); Lymphocytes % (Auto) 42 % (10-50); Mean Corpuscular HGB Conc 35.6 g/dl (31.0-37.0); Mean Corpuscular Hemoglobin 30.3 pg (25.0-35.0); Mean Corpuscular Volume 85 fL (80-100); Monocytes # (Auto) 0.6 Thou/mm3 (0.0-0.8); Monocytes % (Auto) 10 % (0-12); Neutrophils # (Auto) 2.5 Thou/mm3 (1.8-7.7); Neutrophils % (Auto) 43 % (37-80); Nucleated Red Blood Cell # 0.00 Thou/mm3 (0.00-0.00); Nucleated Red Blood Cell % 0 /100 WBC (0); Platelet Count 190 Thou/mm3 (140-440); RDW Standard Deviation 35.7 fL (35.1-43.9); Red Blood Count 4.19 Miln/mm3 (4.50-5.90); White Blood Count 5.9 Thou/mm3 (3.8-10.6)
[2025-03-04 06:23] LABS: Alanine Aminotransferase 79 U/L (10-49); Albumin, Serum 3.8 gm/dL (3.5-5.0); Albumin/Globulin Ratio 1.9 (1.2-2.2); Alkaline Phosphatase 91 U/L (46-116); Anion Gap 14 (7-16); Aspartate Amino Transferase 73 U/L (0-34); BUN/Creatinine Ratio 11 Ratio (12-20); Bilirubin,Total 1.0 mg/dL (0.3-1.2); Blood Urea Nitrogen 11 mg/dL (9-23); Calcium 8.5 mg/dL (8.3-10.6); Calcium (Corrected) 8.7 mg/dL (8.5-10.1); Carbon Dioxide 25.1 mMol/L (20.0-31.0); Chloride 102 mMol/L (98-107); Creatinine (Component) 1.0 mg/dL (0.6-1.3); Estimated Creatinine Clearance 105.8 mL/min (>60); Globulin 2.0 gm/dL (2.3-3.5); Glucose 251 mg/dL (74-106); Magnesium 1.8 mg/dL (1.6-2.6); Osmolality,Calculated 288 (275-295); Phosphorous 4.5 mg/dL (2.4-5.1); Potassium 3.2 mMol/L (3.4-5.1); Sodium 141 mMol/L (136-145); Total Protein 5.8 gm/dL (5.7-8.2); eGFR > 60 See Note
[2025-03-04 07:42] VITALS: BP 120/80; PULSE 91; RESP 18; TEMP 36.6; O2SAT 98
[2025-03-04] MEDS: INSULIN LISPRO (AdmeLOG) 1 UNIT/0.01 ML UNIT 8 UNIT SC ×3 (07:47→17:24)
[2025-03-04] MEDS: INSULIN LISPRO (AdmeLOG) 1 UNIT/0.01 ML UNIT SC ×3 (07:48→17:24)
[2025-03-04] MEDS: INSULIN DEGLUDEC 5 UNIT/0.05 ML (PER 5 UNITS) 20 UNIT SC (08:49)
--- NOTE | 2025-03-04 11:38 | PC.NURSE ---
Pt has DC order in place, pt will be picked up by mom at 1800.
[2025-03-04 12:00] VITALS: BP 135/84; PULSE 79; RESP 18; TEMP 36.1; O2SAT 99
--- NOTE | 2025-03-04 13:02 | PC.CC ---
New DM admitted for DKA. Met w/ patient at bedside for DM education and insulin injection training. Patient has been observing nursing staff administer insulin and is confident he will be able to administer and adhere to multiple daily insulin injections. Discussed discharge plan of basal-bolus insulin plus CGM. Patient states he only eats breakfast and dinner so advised patient to use mealtime insulin prior to those meals only. Demonstrated preparation and use of insulin pen and injection technique. Verified understanding with teachback. Patient does not have a PCP at this time but states his mother is scheduling him an appointment at a clinic in [place]. Emphasized the importance of productive primary care for DM management. Discussed impact of nutrition and physical activity on glucose control. Patient has sample CGM at bedside but his phone is not charged and he is unable to download iQiyi kedar at this time. Provided verbal instruction on application of CGM and use and recommended patient seek additional assistance from his community pharmacy and/or review instructional videos online. Time was taken to answer questions. Discussed with Dr. Higgins and made request for pen needles and to cancel duplicate Humalog Rx. S/W [facility] pharmacy who confirmed prescriptions ready and billed to insurance.
--- NOTE | 2025-03-04 15:12 | ESDS_ITS ---
Planned Discharge Date 03/04/25 DS: Providers Provider Date of admission: 03/01/25 21:05 Primary care physician: Physician No Primary/Family Admitting Provider: Adelfo Ballard MD Attending Provider on Admission: Alber Higgins MD Consults: 03/01/25 20:35 Referral Registered Dietitian Routine Comment: Attending Provider on DC: Alber Higgins MD Discharging Provider: Alber Higgins MD Diagnosis Problem List Completed Was Problem List Reviewed/Reconciled?: Yes Hospital Course - Hospitalist Time Spent with Patient Time attestation: Total time spent providing and/or coordinating discharge services: 35 min Time spent: Greater than 30 minutes Home Health Home Health Referral Orders: Patient is a 24 years old male without known past medical history who was brought to the ED by his mother for persistent nausea vomiting over the last 3 days. Patient started experiencing severe nausea 72 hours before presentation, with intermittent episodes of nonbilious nonbloody vomitus x 10+ episodes over the last 3 days. In the ED, he was found to be in DKA and was admitted to ICU. Patient received insulin drip as per DKA protocol with frequent monitoring following which he started improving. Anion gap and acidosis were resolved and patient was transferred to medical floor for further management. Patient has been stable on insulin degludec along with lispro Premeal and sliding scale. This morning, his vitals are stable. Lab results show potassium of 3.2, which was repleted accordingly. Rest of the labs were stable as well. Blood glucose have been controlled with current insulin regimen. Patient at bedside he states he is feeling well and denies any new complaints. We will discharge patient home on degludec 20 units along with lispro 8 units 3 times daily with meal. Patient is recommended to follow lifestyle modification with more exercise, low carbohydrate diet and weight loss. Patient understands and agrees with the plan. Recommended to follow-up with his PCP, monitor his glucose level closely and adjust his antihyperglycemic regimen. #Diabetic ketoacidosis, resolved #New onset DM2 #Hypernatremia #LIAM, resolved #AGMA 2/2 DKA versus LA, resolved #Hyperkalemia, resolved #Hypomagnesemia, resolved #Hypercalcemia, resolved #Hyperphosphatemia, resolved #Hypophosphatemia #Leukocytosis #Hx alcohol use #Hx cocaine use Alber Higgins MD Discharge Results Labs Diagrams: 03/04/25 05:30 03/04/25 05:30 Labs: Short CBC 03/04/25 Range/Units 05:30 WBC 5.9 (3.8-10.6) Thou/mm3 Hgb 12.7 L (13.5-16.0) g/dL Hct 35.7 L (41.0-53.0) % Plt Count 190 (140-440) Thou/mm3 BMP 03/04/25 05:30 Sodium 141 Potassium 3.2 L Chloride 102 Carbon Dioxide 25.1 BUN 11 Creatinine 1.0 Glucose 251 H Calcium 8.5 Liver Function 03/04/25 Range/Units 05:30 Total Bilirubin 1.0 (0.3-1.2) mg/dL AST 73 H (0-34) U/L ALT 79 H (10-49) U/L Alkaline Phosphatase 91 (46-116) U/L Albumin 3.8 (3.5-5.0) gm/dL Exam Vital Signs Temp Pulse Resp BP Pulse Ox O2 Del Method 97.1 F 80 20 141/78 H 100 Room Air 03/04/25 16:00 03/04/25 16:00 03/04/25 16:00 03/04/25 16:00 03/04/25 16:00 03/04/25 16:00 Narrative General: A/O x3, no acute distress, well-nourished, well-developed Eyes: PERRL, EOMI. Anicteric, vision grossly intact. ENT: Moist mucous membranes Neck: Neck supple, non-tender, no cervical lymphadenopathy. Lungs: Clear RUDDY to auscultation and percussion, No accessory muscle use. Cardio: Normal S1/S2, regular rhythm, no murmurs, no JVD or carotid bruits. Abdomen: Soft, non-tender, no palpable masses, peristalsis present, no guarding or rebound. Extremities: Symmetrical, no significant deformities, no peripheral edema , non-tender, peripheral pulses presents. Skin: No rashes, no lesions, warm to touch. Neuro: No focal neurological deficits. motor and sensory intact Psych: Cooperative, appropriate mood and effect Discharge Plan Plan Patient Disposition: HOME (Self Care) Patient condition on transfer: Stable Care Plan Goals: Please follow up with [facility] PCP or [facility] 2 weeks of discharge Please continue Insulin Regimen as prescribed Prescriptions/Referrals Prescriptions/Med Rec: New (DME) FreeStyle Rosita 3 Sensor Device See Rx Instructions .Route Qty: 1 0RF Rx Instructions: As directed insulin degludec 100 unit/mL (3 mL) insulin pen 20 unit subcut QDAY Qty: 15 0RF insulin lispro [Humalog KwikPen Insulin] 100 unit/mL insulin pen 8 unit subcut TIDWM Qty: 15 0RF (DME) pen needle, diabetic 29 gauge needle See Rx Instructions .Route Qty: 100 3RF Rx Instructions: Use to inject 4 times a day Referrals: No Primary/Family,Physician [Primary Care Provider] Patient/Caregiver Discharge Instructions Education Materials: CGM, How to Check Your Blood Sugar, Insulin How to Use and Where to Inject, Diabetes: Activity Tips, Diabetes Exercise Plan, Diabetes Tracking Your Fitness ..., Diabetes Carbs Fats Protein, Diabetes: Ways to Take Medicine Print Language: Kinyarwanda Stand Alone Forms: [facility]lyson Award Info., Patient Portal Info Letter Discharge Order Discharge Orders: Discharge (Routine); Ordered 03/04/25 Ordered By: Alber Higgins Quality Discharge Quality Measures VTE prophylaxis
[2025-03-04 16:00] VITALS: BP 141/78; PULSE 80; RESP 20; TEMP 36.2; O2SAT 100
[2025-03-08 06:29] LABS: C-Peptide* 0.85 ng/mL (0.80-3.85)
== END 2025-03-04 18:51 | disposition home or self-care (01) | DRG 420 ==
LOC: SERX 21:13 → SERHOLD 21:31 → S2SX 03-02 00:06 → S3SX 03-02 16:51
PROVIDERS: Physician Assistant; Student in an Organized Health Care Education/Training Program; Admitting Provider Internal Medicine; Emergency Provider Emergency Medicine; Visit Provider Student in an Organized Health Care Education/Training Program
DX: E11.10 Type 2 diabetes mellitus with ketoacidosis without coma (principal); F14.90 Cocaine use, unspecified, uncomplicated; E87.5 Hyperkalemia; E83.52 Hypercalcemia; E83.39 Other disorders of phosphorus metabolism; E83.41 Hypermagnesemia; R00.0 Tachycardia, unspecified; N17.9 Acute kidney failure, unspecified; E83.42 Hypomagnesemia; D72.829 Elevated white blood cell count, unspecified; E86.0 Dehydration; E87.0 Hyperosmolality and hypernatremia; F41.9 Anxiety disorder, unspecified; Z79.4 Long term (current) use of insulin
CPT/HCPCS: 36415; 36600; 71045; 80053; 80061; 80069; 80307; 80320; 81001; 82010; 82803; 83036; 83605; 83690; 83735; 84100; 84145; 84443; 84681; 85025; 86341; 87040; 87081; 87811; 93005; 96365; 96366; 99285; J0696; J1815; J3475; J3480; J3490; J7120; J7121; Q0162; A9270; G0480